=== PATIENT | female | born 1965 | race African-American/Black ===

== ENCOUNTER 2017-01-25 11:31 | Inpatient (IN) | payer BC ==
[~2017-01-25] VITALS: Ht 149.9 cm; Wt 65.0 kg
[~2017-01-25 11:31] MED LIST: ASPI325T PO; GABA300C5 PO; GLIM4TAB PO; LIPI10TA PO; LOSA50TA2 PO; METF500T PO; OMEP20TA PO
[2017-01-25 11:34] VITALS: BP 237/112; PULSE 101; RESP 15; TEMP 98.2; O2SAT 99
--- NOTE | 2017-01-25 11:41 | PD ---
Physical Exam Time Seen by Provider: 11:39 Narrative 51 y/o female here with intermittent numbness/tingling in L arm/leg, heaviness sensation in L leg, for 5 days. More consistent today which prompted evaluation. +Nausea, dizziness. Vital signs reviewed. Hypertensive. Seen at triage desk. She is being immediately bedded. Data Data Last Documented VS Vital Signs Date Time Temp Pulse Resp B/P Pulse Ox O2 Delivery O2 Flow Rate FiO2 01/25/17 11:34 98.2 101 15 237/112 99 MDM Medical Record Reviewed: Yes Supervised Visit with MERON: Alessio Sanchez Jan 25, 2017 11:41
[2017-01-25 11:50] VITALS: BP 192/112; PULSE 102; RESP 18; O2SAT 100
[2017-01-25] MEDS ORDERED: SODIUM CHLORIDE 0.9% FLUSH 10 ML FLUSH IVF PRN (12:00)
[2017-01-25 12:12] LABS: AUTOMATED NEUTROPHIL # 4.6 TH/MM3 (1.8-7.7); BASOPHIL # 0.1 TH/MM3 (0-0.2); BASOPHIL % 1.1 % (0.0-2.0); EOSINOPHIL # 0.1 TH/MM3 (0-0.4); EOSINOPHIL % 1.4 % (0.0-4.0); HEMATOCRIT 35.1 % (35.0-46.0); HEMO FLAGS DIFF FINAL; LYMPH % 38.4 % (9.0-44.0); LYMPHOCYTE # 3.3 TH/MM3 (1.0-4.8); MEAN CELL VOLUME 85.2 FL (80.0-100.0); MEAN CORPUSCULAR HEMOGLOBIN 28.5 PG (27.0-34.0); MEAN CORPUSCULAR HGB CONC 33.5 % (32.0-36.0); MONO % 5.7 % (0.0-8.0); NEUT % 53.4 % (16.0-70.0); PLATELET COUNT 341 TH/MM3 (150-450); RED BLOOD COUNT 4.12 MIL/MM3 (4.00-5.30); RED CELL DISTRIBUTION WIDTH 12.7 % (11.6-17.2); WHITE BLOOD COUNT 8.7 TH/MM3 (4.0-11.0)
--- NOTE | 2017-01-25 12:36 | RADRPT ---
EXAM DATE/TIME: 01/25/2017 12:20 [facility] COMPARISON: CT BRAIN W/O CONTRAST, August 23, 2016, 16:54. INDICATIONS : Left sided weakness and numbness x5 days. RADIATION DOSE: 56.77 CTDIvol (mGy) MEDICAL HISTORY : Cardiovascular disease. Hypertension. Diabetes mellitus type 2.CVA. TIA. SURGICAL HISTORY : Cholecystectomy. ENCOUNTER: Initial ACUITY: 4 - 6 days PAIN SCALE: 0/10 LOCATION: cranial TECHNIQUE: Multiple contiguous axial images were obtained of the head. Using automated exposure control and adj ustment of the mA and/or kV according to patient size, radiation dose was kept as low as reasonably a chievable to obtain optimal diagnostic quality images. FINDINGS: CEREBRUM: The ventricles are normal for age. No evidence of midline shift, mass lesion, hemorrhage or acute in farction. No extra-axial fluid collections are seen. POSTERIOR FOSSA: The cerebellum and brainstem are intact. The 4th ventricle is midline. The cerebellopontine angle i s unremarkable. EXTRACRANIAL: The visualized portion of the orbits is intact. SKULL: The calvaria is intact. No evidence of skull fracture. CONCLUSION: No acute disease. Silvestre Pretty MD FACR on January 25, 2017 at 12:32 Board Certified Radiologist. This report was verified electronically.
[2017-01-25 12:40] LABS: ANION GAP 11 MEQ/L (5-15); BICARBONATE 20.8 MEQ/L (21.0-32.0); BLOOD UREA NITROGEN 23 MG/DL (7-18); CHLORIDE 99 MEQ/L (98-107); GLOMERULAR FILTRATION RATE 37 ML/MIN (>89); POTASSIUM 4.5 MEQ/L (3.5-5.1); SODIUM (NA) 131 MEQ/L (136-145)
--- NOTE | 2017-01-25 12:44 | PD ---
HPI Chief Complaint: Neuro Symptoms/ Deficits Time Seen by Provider: 11:44 Travel History International Travel<30 days: No Contact w/Intl Traveler<30days: No Traveled to known affect area: No History of Present Illness HPI 51-year-old female arrives to the ER due to left upper extremity paresthesias and weakness for 5 days. She reports some vague sensation of dizziness and nausea which comes and goes and seems to proceed episodes of marked numbness and tingling. She reports dropping some complaints of the left hand today. She reports a history of stroke in July, 6 months ago, and believes his symptoms today are similar. She's had no vomiting fever chest pain shortness of breath or headache. She's had no new meds or change in medications. She denies drug alcohol abuse. She follows with Dr. Thomas of neurology. She reports taking aspirin daily. PFSH Past Medical History Cardiovascular Problems: Yes High Cholesterol: Yes Cerebrovascular Accident: Yes Diabetes: Yes Patient Takes Glucophage: Yes Endocrine: Yes Hypertension: Yes Musculoskeletal: No Neurologic: No Psychiatric: No Respiratory: Yes (STATES RECENTLY TREATED FOR PLEURISY AND JUST FINISHED STEROIDS) ?: Not : 3 Para: 3 Past Surgical History Cholecystectomy: Yes Other Surgery: Yes (GALLBLADDER REMOVED) Social History Alcohol Use: No Tobacco Use: No Substance Use: No Allergies-Medications (Allergen,Severity, Reaction): Coded Allergies: Tylenol #3 (Verified Allergy, Severe, RASH, 08/23/16) Zyrtec (Verified Allergy, Severe, RASH, 08/23/16) Septra (Verified Allergy, Mild, HIVES, 08/23/16) Reported Meds & Prescriptions Reported Meds & Active Scripts Active Aspirin 325 Mg Tab 325 Mg PO DAILY Reported Metformin (Metformin HCl) 1,000 Mg Tab 1,000 Mg PO BIDPC With meals Atorvastatin (Atorvastatin Calcium) 10 Mg Tab 10 Mg PO HS Gabapentin 800 Mg Tab 800 Mg PO TID Omeprazole 20 Mg Tab 20 Mg PO DAILY Losartan-Hydrochlorothiazide 50-12.5 Mg Tab 1 Tab PO DAILY Glimepiride 4 Mg Tab 4 Mg PO DAILY Take with breakfast or first main meal Review of Systems Except as stated in HPI: all other systems reviewed are Neg General / Constitutional: No: Fever Neurologic: Positive: Weakness, Dizziness, Paresthesia, Sensory Disturbance Physical Exam Narrative GENERAL: 51-year-old female well-nourished well-developed SKIN: Focused skin assessment warm/dry. HEAD: Atraumatic. Normocephalic. EYES: Pupils equal and round. No scleral icterus. No injection or drainage. ENT: No nasal bleeding or discharge. Mucous membranes pink and moist. NECK: Trachea midline. No JVD. CARDIOVASCULAR: Regular rate and tachycardia. Regular rhythm. RESPIRATORY: No accessory muscle use. Clear to auscultation. Breath sounds equal bilaterally. GASTROINTESTINAL: Abdomen soft, non-tender, nondistended. Hepatic and splenic margins not palpable. MUSCULOSKELETAL: No obvious deformities. No clubbing. No cyanosis. No edema. NEUROLOGICAL: Speech memory and mentation normal. The left leg is weak with hip flexion ankle flexion and extension. Weakness is also observed in the left hand block operator compared to the right. PSYCHIATRIC: Appropriate mood and affect; insight and judgment normal. Data Data Last Documented VS Vital Signs Date Time Temp Pulse Resp B/P Pulse Ox O2 Delivery O2 Flow Rate FiO2 01/25/17 11:50 102 18 100 Room Air 01/25/17 11:50 192/112 01/25/17 11:34 98.2 Vital signs reviewed Orders Electrocardiogram (01/25/17 ) Electrocardiogram (01/25/17 11:54) Complete Blood Count With Diff (01/25/17 11:54) Basic Metabolic Panel (Bmp) (01/25/17 11:54) Drug Screen, Random Urine (01/25/17 11:54) Troponin I (01/25/17 11:54) Urinalysis - C+S If Indicated (01/25/17 11:54) Ct Brain W/O Iv Contrast(Rout) (01/25/17 11:54) Ecg Monitoring (01/25/17 11:54) Iv Access Insert/Monitor (01/25/17 11:54) Oximetry (01/25/17 11:54) Blood Glucose (01/25/17 11:54) Sodium Chloride 0.9% Flush (Ns Flush) (01/25/17 12:00) Mri Brain W/O Contrast (01/25/17 12:01) Sodium Chlor 0.9% 1000 Ml Inj (Ns 1000 M (01/25/17 13:00) Insulin Human Regular Inj (Novolin R Inj (01/25/17 13:00) Admit Order (Ed Use Only) (01/25/17 13:40) Labs Laboratory Tests Test 01/25/17 01/25/17 12:00 13:30 White Blood Count 8.7 TH/MM3 Red Blood Count 4.12 MIL/MM3 Hemoglobin 11.8 GM/DL Hematocrit 35.1 % Mean Corpuscular Volume 85.2 FL Mean Corpuscular Hemoglobin 28.5 PG Mean Corpuscular Hemoglobin 33.5 % Concent Red Cell Distribution Width 12.7 % Platelet Count 341 TH/MM3 Mean Platelet Volume 8.3 FL Neutrophils (%) (Auto) 53.4 % Lymphocytes (%) (Auto) 38.4 % Monocytes (%) (Auto) 5.7 % Eosinophils (%) (Auto) 1.4 % Basophils (%) (Auto) 1.1 % Neutrophils # (Auto) 4.6 TH/MM3 Lymphocytes # (Auto) 3.3 TH/MM3 Monocytes # (Auto) 0.5 TH/MM3 Eosinophils # (Auto) 0.1 TH/MM3 Basophils # (Auto) 0.1 TH/MM3 CBC Comment DIFF FINAL Differential Comment Sodium Level 131 MEQ/L Potassium Level 4.5 MEQ/L Chloride Level 99 MEQ/L Carbon Dioxide Level 20.8 MEQ/L Anion Gap 11 MEQ/L Blood Urea Nitrogen 23 MG/DL Creatinine 1.74 MG/DL Estimat Glomerular Filtration 37 ML/MIN Rate Random Glucose 407 MG/DL Calcium Level 9.2 MG/DL Troponin I LESS THAN 0.02 NG/ML Urine Opiates Screen NEG Urine Barbiturates Screen NEG Urine Amphetamines Screen NEG Urine Benzodiazepines Screen NEG Urine Cocaine Screen NEG Urine Cannabinoids Screen NEG MDM Medical Decision Making Medical Screen Exam Complete: Yes Emergency Medical Condition: Yes Medical Record Reviewed: Yes Differential Diagnosis Hemorrhagic CVA, ischemic CVA, electrolyte imbalance, new medication, renal failure Narrative Course CBC & BMP Diagram 01/25/17 12:00 AG 11 Urine toxicology is hernández-negative Last 24 hours Impressions Brain MRI 01/25/17 1201 Signed Impressions: Service Date/Time: Wednesday, January 25, 2017 12:32 - CONCLUSION: No acute intracranial findings. Americo Kraft MD Head CT 01/25/17 1154 Signed Impressions: Service Date/Time: Wednesday, January 25, 2017 12:20 - CONCLUSION: No acute disease. Silvestre Pretty MD FACR Pt will be admitted for further investigation into LUE/LLE weakness. d/w Dr Machuca. Glucose 407; 1L NS added with 6u insulin. Diagnosis Primary Impression: LUE weakness Additional Impressions: Weakness of left lower extremity Hyperglycemia Admitting Information Admitting Physician Requests: Observation Herminio Ramirez MD Jan 25, 2017 12:44
[2017-01-25] MEDS ORDERED: INSULIN HUMAN REGULAR 1,000 UNITS/10 ML VIAL IV PUSH ONE (13:00)
[2017-01-25] MEDS ORDERED: SODIUM CHLOR 0.9% 1000 ML INJ 1,000 ML IV ONE (13:00)
--- NOTE | 2017-01-25 13:13 | RADRPT ---
EXAM DATE/TIME: 01/25/2017 12:32 [facility] COMPARISON: MRI BRAIN W/O CONTRAST, August 23, 2016, 18:57. INDICATIONS : CVA. Left sided weakness. MEDICAL HISTORY : Hypertension. Diabetes mellitus type 2. TIA. SURGICAL HISTORY : Cholecystectomy. Tubal ligation. ENCOUNTER: Initial ACUITY: 1 day PAIN SCORE: 0/10 LOCATION: Head. TECHNIQUE: Multiplanar, multisequence MRI of the brain was performed without contrast. FINDINGS: CEREBRUM: The ventricles are normal for age. No evidence of midline shift, mass lesion, hemorrhage or acute in farction. No extraaxial fluid collections are seen. The pituitary gland and suprasellar cistern are normal in configuration. WHITE MATTER: No significant signal abnormalities are seen in the white matter. POSTERIOR FOSSA: The cerebellum and brainstem are intact. The 4th ventricle is midline. The cerebellopontine angle is unremarkable. The cerebellar tonsils are normal in position. DIFFUSION IMAGING: No focal areas of restricted diffusion are seen. No evidence of acute infarction. EXTRACRANIAL: The visualized portions of the orbits and paranasal sinuses are unremarkable. CONCLUSION: No acute intracranial findings. Americo Kraft MD on January 25, 2017 at 13:08 Board Certified Radiologist. This report was verified electronically.
[2017-01-25 13:50] LABS: AMPHETAMINE, URINE NEG (NEG); BARBITURATES, URINE NEG (NEG); COCAINE, URINE NEG (NEG)
[2017-01-25] MEDS: SODIUM CHLOR 0.9% 1000 ML INJ 1,000 ML IV SCH (14:00)
[2017-01-25] MEDS ORDERED: ATOR10TA15 PO (14:17)
[2017-01-25] MEDS ORDERED: GABA800T PO (14:17)
[2017-01-25] MEDS ORDERED: METF1000 PO (14:18)
[2017-01-25] MEDS: cloNIDine HCL 0.1 MG TAB PO PRN (15:39)
[2017-01-25 15:40] VITALS: BP 180/83; PULSE 89; RESP 16; O2SAT 98
[2017-01-25] MEDS ORDERED: DEXTROSE 50% IN WATER 50 ML VIAL(D50) IV PRN (16:15)
[2017-01-25] MEDS ORDERED: DOCUSATE SODIUM 50 MG/SENNA 8.6 MG TAB PO PRN (16:15)
[2017-01-25] MEDS ORDERED: CALCIUM CARBONATE 500 MG CHEWABLE TAB CHEW PRN (16:15)
[2017-01-25] MEDS ORDERED: GLUCAGON 1 MG/ML VIAL OTHER PRN (16:15)
[2017-01-25 16:29] VITALS: BP 170/87; TEMP 98.3
--- NOTE | 2017-01-25 16:29 | HHI.HP ---
HPI Service [facility] Primary Care Physician No Primary Care Physician Admission Diagnosis LUE/LLE Weakness Diagnoses: Chief Complaint: Neuro symptoms Travel History International Travel<30 Days: No Contact w/Intl Traveler <30 Da: No Traveled to Known Affected Are: No History of Present Illness This is a 51-year-old female with a history of TIA, hyperlipidemia, diabetes mellitus, hypertension and obesity. She presents to the ER due to intermittent left upper and lower extremity paresthesias and weakness for 5 days worse today becoming more persistent and was recommended by her work supervisor wet room to be evaluated. She also has been dropping things with her left hand. Today she also complained of chills, dizziness and nausea. No fever, headache, speech or swallowing difficulties, chest pain, shortness of breath, abdominal and back pain and diarrhea. She has chronic increased urination and incontinence. She reports a history of stroke 6 months ago and feels her symptoms are similar. EMR review shows she had TIA and had brain MRI, head MRA, carotid ultrasound and echocardiogram. She has been compliant with aspirin. No recent medication changes. BP was also elevated 237/112 and received clonidine. All other systems reviewed negative Review of Systems Except as stated in HPI: all other systems reviewed are Neg Past Family Social History Past Medical History As previously mentioned Past Surgical History Cholecystectomy Reported Medications Aspirin Metformin (Metformin HCl) 1,000 Mg Tab 1,000 Mg PO BIDPC With meals Atorvastatin (Atorvastatin Calcium) 10 Mg Tab 10 Mg PO HS Gabapentin 800 Mg Tab 800 Mg PO TID Omeprazole 20 Mg Tab 20 Mg PO DAILY Losartan-Hydrochlorothiazide 50-12.5 Mg Tab 1 Tab PO DAILY Glimepiride 4 Mg Tab 4 Mg PO DAILY Take with breakfast or first main meal Allergies: Coded Allergies: Tylenol #3 (Verified Allergy, Severe, RASH, 08/23/16) Zyrtec (Verified Allergy, Severe, RASH, 08/23/16) Septra (Verified Allergy, Mild, HIVES, 08/23/16) Family History Coronary artery disease mother Social History Does not smoke or drink. She works in the [employer] section Physical Exam Vital Signs Vital Signs Date Time Temp Pulse Resp B/P Pulse Ox O2 Delivery O2 Flow Rate FiO2 01/25/17 15:40 89 16 180/83 98 01/25/17 11:50 102 18 100 Room Air 01/25/17 11:50 102 18 192/112 100 Room Air 01/25/17 11:34 98.2 101 15 237/112 99 Physical Exam GENERAL: This is a well-nourished, well-developed patient, in no apparent distress. Appears anxious SKIN: No rashes, ecchymoses or lesions. Cool and dry. HEAD: Atraumatic. Normocephalic. No temporal or scalp tenderness. EYES: Pupils equal round and reactive. Extraocular motions intact. No scleral icterus. No injection or drainage. ENT: Nose without bleeding, purulent drainage or septal hematoma. Throat without erythema, tonsillar hypertrophy or exudate. Uvula midline. Airway patent. NECK: Trachea midline. No JVD or lymphadenopathy. Supple, nontender, no meningeal signs. CARDIOVASCULAR: Regular rate and rhythm without murmurs, gallops, or rubs. RESPIRATORY: Clear to auscultation. Breath sounds equal bilaterally. No wheezes , rales, or rhonchi. GASTROINTESTINAL: Abdomen soft, non-tender, nondistended. Left CVA tenderness No guarding. MUSCULOSKELETAL: Extremities without clubbing, cyanosis, or edema. No joint tenderness, effusion, or edema noted. No calf tenderness. Negative Homans sign bilaterally. NEUROLOGICAL: Awake and alert. Cranial nerves II through XII intact. She has decreased sensation in the left upper and left lower extremities as well as decreased strength. She is able to raise left upper and left lower extremities slightly against resistance. She has left upper extremity pronator drift. Normal speech. Laboratory Laboratory Tests Test 01/25/17 01/25/17 12:00 13:30 White Blood Count 8.7 Red Blood Count 4.12 Hemoglobin 11.8 Hematocrit 35.1 Mean Corpuscular Volume 85.2 Mean Corpuscular Hemoglobin 28.5 Mean Corpuscular Hemoglobin 33.5 Concent Red Cell Distribution Width 12.7 Platelet Count 341 Mean Platelet Volume 8.3 Neutrophils (%) (Auto) 53.4 Lymphocytes (%) (Auto) 38.4 Monocytes (%) (Auto) 5.7 Eosinophils (%) (Auto) 1.4 Basophils (%) (Auto) 1.1 Neutrophils # (Auto) 4.6 Lymphocytes # (Auto) 3.3 Monocytes # (Auto) 0.5 Eosinophils # (Auto) 0.1 Basophils # (Auto) 0.1 CBC Comment DIFF FINAL Differential Comment Sodium Level 131 Potassium Level 4.5 Chloride Level 99 Carbon Dioxide Level 20.8 Anion Gap 11 Blood Urea Nitrogen 23 Creatinine 1.74 Estimat Glomerular Filtration 37 Rate Random Glucose 407 Calcium Level 9.2 Troponin I LESS THAN 0.02 Urine Opiates Screen NEG Urine Barbiturates Screen NEG Urine Amphetamines Screen NEG Urine Benzodiazepines Screen NEG Urine Cocaine Screen NEG Urine Cannabinoids Screen NEG Result Diagram: 01/25/17 1200 01/25/17 1200 Imaging EKG tracing interpreted by me with sinus rhythm Last Impressions Brain MRI 01/25/17 1201 Signed Impressions: Service Date/Time: Wednesday, January 25, 2017 12:32 - CONCLUSION: No acute intracranial findings. Americo Kraft MD Head CT 01/25/17 1154 Signed Impressions: Service Date/Time: Wednesday, January 25, 2017 12:20 - CONCLUSION: No acute disease. Silvestre Pretty MD FACR Assessment and Plan Problem List: (1) LUE weakness ICD Code: R29.898 Status: Acute (2) Weakness of left lower extremity ICD Code: R29.898 Status: Acute (3) Hyperglycemia ICD Code: R73.9 Status: Acute Assessment and Plan This is a 51-year-old female who presents to the emergency department because of intermittent left upper and lower extremity paresthesias and weakness for 5 days worse today becoming more persistent Left-sided numbness and weakness with a history of TIA. Heads CT and brain MRI without acute findings. She had complete neurologic workup 6 months ago. Obtain cervical spine MRI and repeat echocardiogram. Monitor on telemetry. Continue aspirin and consult neurology Hyperglycemia with history of diabetes mellitus. She received 6 units regular insulin in the emergency department. Diabetic education. Monitor fingersticks with sliding scale coverage and restart glimepiride. Hold metformin secondary to acute kidney injury. Obtain A1c Acute kidney injury with hyponatremia. Continue IV hydration and avoid nephrotoxins Hold losartan and hydrochlorothiazide. Hypertensive urgency. Start Norvasc and added as needed medications clonidine and hydralazine to keep blood pressure less than 160/90. Urinary complaints with chills and left CVA tenderness suspect pyelonephritis. Obtain UA DVT prophylaxis with SCD and early ambulation Discussed Condition With Patient, family and ER staff Physician Certification 2 Midnight Certification Type: Admission for Inpatient Services Order for Inpatient Services The services are ordered in accordance with Medicare regulations or non- Medicare payer requirements, as applicable. In the case of services not specified as inpatient-only, they are appropriately provided as inpatient services in accordance with the 2-midnight benchmark. Estimated LOS (days): 2 2 days is the estimated time the patient will need to remain in the hospital, assuming treatment plan goals are met and no additional complications. Post-Hospital Plan: Not yet determined Eliazar Adamson MD Jan 25, 2017 16:29
[2017-01-25 16:42] LABS: BACTERIA, URINE MOD /hpf; BLOOD, URINE LARGE (NEG); GLUCOSE,URINE 1000 mg/dL (NEG); HYALINE CAST, URINE 12 /lpf (RARE); KETONE, URINE NEG (NEG); SQUAMOUS EPITHELIAL CELL URINE 1 /hpf (0-5); URINE COLOR LIGHT-YELLOW (YELLW/STRAW)
[2017-01-25 16:44] LABS: COMMENT (UR) CATH-CULTURE IND; CULTURE IF INDICATED CATH CULTURE IND; NITRITE,URINE POS (NEG)
--- NOTE | 2017-01-25 17:39 | RADRPT ---
EXAM DATE/TIME: 01/25/2017 16:52 [facility] COMPARISON: No previous studies available for comparison. INDICATIONS : Extremity weakness. Left side weakness. MEDICAL HISTORY : Hypertension. Diabetes. TIA. SURGICAL HISTORY : Cholecystectomy. Tubal ligation. ENCOUNTER: Subsequent ACUITY: 4-6 days PAIN SCORE: 3/10 LOCATION: neck TECHNIQUE: Multiplanar, multisequence MRI examination of the cervical spine was performed. FINDINGS: VERTEBRAE: Normal vertebral body height. Reactive bony changes about the C5-6 intervertebral disc. ALIGNMENT: No evidence of subluxation. CORD: Normal configuration and signal. POST FOSSA: The cerebellar tonsils are normal in position. C2-C3: The thecal sac has a normal configuration. There is no evidence of disc herniation or spinal canal s tenosis. The neural foramina are patent bilaterally. C3-C4: Broad-based disc osteophyte complex right greater than left. Central canal diameter within normal anaya its. Minimal right neuroforaminal narrowing. C4-C5: Broad-based disc osteophyte complex. Central canal diameter within normal limits. Minimal right neura l foraminal narrowing. C5-C6: Broad-based disc osteophyte complex with superimposed left lateral disc protrusion. Effacement of the CSF anteriorly and posteriorly. Mild flattening of the anterior spinal cord contour. No spinal cord signal abnormality. Moderate left neural foraminal narrowing. C6-C7: The thecal sac has a normal configuration. There is no evidence of disc herniation or spinal canal s tenosis. The neural foramina are patent bilaterally. C7-T1: The thecal sac has a normal configuration. There is no evidence of disc herniation or spinal canal s tenosis. The neural foramina are patent bilaterally. CONCLUSION: C5-6 broad-based disc osteophyte complex with superimposed left lateral disc protrusi on resulting in moderate central canal stenosis and mild spinal cord deformity but no spinal cord sig nal abnormality. Moderate left neuroforaminal narrowing. Americo Kraft MD on January 25, 2017 at 17:33 Board Certified Radiologist. This report was verified electronically.
[2017-01-25] MEDS: GABAPENTIN 400 MG CAP PO SCH (17:43)
[2017-01-25] MEDS: ONDANSETRON HCL 4 MG/2 ML VIAL IV PRN (17:43)
[2017-01-25 18:30] VITALS: BP 157/81; PULSE 77; RESP 20; TEMP 96.5; O2SAT 100
[2017-01-25 20:00] VITALS: BP 160/74; PULSE 71; RESP 18; TEMP 96.8; O2SAT 98
[2017-01-25] MEDS: cefTRIAXone INJ 1,000 MG in SODIUM CHLORIDE 0.9% INJ 100 ML IV SCH (21:40)
[2017-01-25] MEDS: ATORVASTATIN 10 MG TAB PO SCH (21:40)
[2017-01-25] MEDS: INSULIN ASPART SUPPLEMENTAL SCALE SQ SCH (22:19)
[2017-01-26] VITALS (8 sets, daily range): BP systolic 116–164; BP diastolic 65–82; PULSE 74–91; RESP 17–20; TEMP 96.5–97.6; O2SAT 98–100
[2017-01-26] MEDS: INSULIN ASPART SUPPLEMENTAL SCALE SQ SCH ×4 (07:09→20:53)
[2017-01-26] MEDS: ASPIRIN 325 MG TAB PO SCH (08:44)
[2017-01-26] MEDS: PANTOPRAZOLE SOD 20 MG DELAYED RELEASE TAB PO SCH (08:44)
[2017-01-26] MEDS: GABAPENTIN 400 MG CAP PO SCH ×3 (08:44→17:40)
[2017-01-26] MEDS: amLODIPine BESYLATE 5 MG TAB PO SCH (08:45)
[2017-01-26] MEDS: GLIMEPIRIDE 4 MG TAB PO SCH (08:45)
[2017-01-26] MEDS: SODIUM CHLOR 0.9% 1000 ML INJ 1,000 ML IV SCH ×2 (08:53→17:44)
[2017-01-26 09:27] LABS: ALKALINE PHOSPHATASE 104 U/L (45-117); ALT (GPT) 22 U/L (10-53); ANION GAP 9 MEQ/L (5-15); AST (GOT) 22 U/L (15-37); BICARBONATE 20.1 MEQ/L (21.0-32.0); BLOOD UREA NITROGEN 14 MG/DL (7-18); CHLORIDE 110 MEQ/L (98-107); GLOMERULAR FILTRATION RATE 75 ML/MIN (>89); HDL CHOLESTEROL 39.8 MG/DL (40.0-60.0); LDL CHOLESTEROL 96 MG/DL (0-99); POTASSIUM 4.4 MEQ/L (3.5-5.1); SODIUM (NA) 139 MEQ/L (136-145); TOTAL BILIRUBIN ADULT 0.1 MG/DL (0.2-1.0)
--- NOTE | 2017-01-26 11:29 | MB ---
cc: WEST RANDLE MD DATE OF CONSULTATION: 01/25/2017 REASON FOR CONSULTATION Next possible stroke. HISTORY OF PRESENT ILLNESS Ms. Burton is a 51-year-old -[place] female with a past medical history of diabetes, hyperlipidemia, hypertension, obesity, and TIA. The patient presented to the [facility] Emergency Room due to left upper and lower extremity numbness and heaviness with mild weakness of five days' duration and slowly progressively worsening. Denies speech difficulty, headache, dizziness, double vision or facial numbness. The patient states that she had a similar episode back in July and she was diagnosed as TIA, however she did not recover completely and she states that these events "come and go". Occasionally she feels weak and drags her left leg. She denies pain however she mentions that recently she has noticed some tingling and radiating pain in the left lower extremity with mild stiffness of the neck, but denies constant deep pain in the neck. She also denies injury. Upon presentation to the emergency room, her blood pressure was elevated to 237/112. REVIEW OF SYSTEMS A 12-point review of systems is negative except for what is stated in the HPI. PAST MEDICAL HISTORY 1. Hyperlipidemia. 2. Diabetes. 3. Obesity. 4. Hypertension. 5. TIA. PAST SURGICAL HISTORY Cholecystectomy. MEDICATIONS 1. Aspirin. 2. Metformin. 3. Atorvastatin. 4. Gabapentin. 5. Omeprazole. 6. Losartan. 7. Hydrochlorothiazide. 8. Glimepiride. ALLERGIES TYLENOL #3, ZYRTEC AND SEPTRA. FAMILY HISTORY Coronary artery disease in her mother. SOCIAL HISTORY Denies smoking or drinking. PHYSICAL EXAMINATION GENERAL: Awake, alert, oriented, surrounded by several family members, not in acute distress, anxious. HEAD, EYES, EARS, NOSE AND THROAT: Atraumatic, normocephalic. Intact hearing and intact vision. NECK: Soft, supple. No signs of meningeal irritation. CARDIOVASCULAR: Regular rate and rhythm. RESPIRATORY: Clear to auscultation. No wheezes GASTROINTESTINAL: Soft, nontender. MUSCULOSKELETAL: Without clubbing, edema or cyanosis. Moves all four extremities. NEUROLOGIC: Awake, alert, oriented to time, person and place. Cranial nerve examination is grossly intact. No facial asymmetry. Intact external ocular motility. Pupils are equally reacting to light and accommodation. No speech difficulty. No dysarthria. No dysphagia. Intact speech content. Motor examination bilateral 5/5. No abnormal movement. Normal tone. Left upper extremity grade 5- left shoulder abduction and wrist and elbow extension. Normal wrist extension. Mild weakness 5-/5 finger flexion. Left lower extremity, hip flexion 5-/5. Foot plantar flexion 5-/5, otherwise 5/5. Normal tone. No abnormal movements. Sensation is diminished left forearm. Reflexes 2+ bilateral and symmetrical. Negative Kolb sign. Negative crossed abductor reflex. Sluggish bilateral ankle reflexes. Plantars bilateral downgoing. Gait is intact. Stance is intact. Toe walking and heel walking are intact. PSYCHOLOGICAL: Normal mood and behavior. LABORATORY DATA White blood cells 8.7, hemoglobin 11.8, MCV 85.2, platelet count 341. Sodium 131, potassium 4.5, anion gap 11, BUN 23, creatinine 1.74, calcium 9.2. UDS negative. IMAGING -Brain MRI without contrast contained no acute intracranial finding. -Head CT scan without contrast with no acute disease. -Cervical spine MRI without contrast revealed C5-6 broad-based disc osteophyte complex with superimposed left lateral disc protrusion resulting in moderate central canal stenosis and mild spinal cord deformity, but no spinal cord signal abnormality. Moderate left neuroforaminal narrowing. DIAGNOSTIC IMPRESSION History of diabetes mellitus History of TIA -History of hypertension, - Left-sided upper and lower extremity weakness slowly progressive, sparing of the face. Possible etiology is degenerative cervical spinal disease/myelopathy. PLAN 1. Neuro checks q.4 hourly. 2. Continue home dose medications. 3. Consult Neurosurgery, recommendations are appreciated. 4. Fall precautions. 5. DVT prophylaxis. 6. GI prophylaxis. Thank you for the opportunity to participate in the care of your patient. MD AAMIR Phipps/JULIETTE /11:04 PM /10:17 AM JOSHUA
--- NOTE | 2017-01-26 12:05 | HHI.PR ---
Subjective Remarks some tingling numbness of left upper extremities states strength stronger Objective Vitals Vital Signs Date Time Temp Pulse Resp B/P Pulse Ox O2 Delivery O2 Flow Rate FiO2 01/26/17 08:00 97.1 75 17 144/70 98 01/26/17 06:59 91 01/26/17 06:36 97.3 82 20 130/69 99 01/26/17 00:00 97.6 77 20 129/66 99 01/25/17 20:00 96.8 71 18 160/74 98 01/25/17 18:30 96.5 77 20 157/81 100 01/25/17 16:29 98.3 89 16 170/87 97 01/25/17 15:40 89 16 180/83 98 I/O 01/25/17 01/25/17 01/25/17 01/26/17 01/26/17 01/26/17 07:00 15:00 23:00 07:00 15:00 23:00 Intake Total 240 ml Balance 240 ml Intake Oral 240 ml # Voids 1 1 # Bowel Movements 0 1 Result Diagram: 01/25/17 1200 01/26/17 0736 Imaging Last Impressions Brain MRI 01/25/17 1201 Signed Impressions: Service Date/Time: Wednesday, January 25, 2017 12:32 - CONCLUSION: No acute intracranial findings. Americo Kraft MD Head CT 01/25/17 1154 Signed Impressions: Service Date/Time: Wednesday, January 25, 2017 12:20 - CONCLUSION: No acute disease. Silvestre Pretty MD FACR Cervical Spine MRI 01/25/17 0000 Signed Impressions: Service Date/Time: Wednesday, January 25, 2017 16:52 - CONCLUSION: C5-6 broad-based disc osteophyte complex with superimposed left lateral disc protrusion resulting in moderate central canal stenosis and mild spinal cord deformity but no spinal cord signal abnormality. Moderate left neuroforaminal narrowing. Americo Kraft MD Objective Remarks awake and alert, NAD anicteric no nuchal rigidity lungs clear regular rhythm abdomen soft, nontender extremities no edema neuro : CN intact grossly no sensory deficits LUE- very very mild left sided weakness gait steady A/P Problem List: (1) LUE weakness ICD Code: R29.898 Status: Acute (2) Weakness of left lower extremity ICD Code: R29.898 Status: Acute (3) Hyperglycemia ICD Code: R73.9 Status: Acute Assessment and Plan This is a 51-year-old right handed female who presents to the emergency department because of intermittent left upper and lower extremity paresthesias and weakness for 5 days worse today becoming more persistent Cervical Myelopathy- symptoms Left-sided tingling numbness more of LUE Heads CT and brain MRI without acute findings. She had complete neurologic workup 6 months ago. -neurology ff. Neurosurgery consulted DM type, elevated readings. . a1C pending. Diabetic education. Monitor fingersticks with sliding scale coverage and restarted glimepiride. DC metformin secondary to acute kidney injury. may need insulin for better control Acute kidney injury with hyponatremia. Resolved. Continue IV hydration and avoid nephrotoxins Hold losartan and hydrochlorothiazide. Hypertensive urgency. Improved Bp readings. started on Norvasc and added as needed medications clonidine and hydralazine to keep blood pressure less than 160/90. UTI- on Ceftriaxone ff C and S DVT prophylaxis with SCD and early ambulation Mike Machuca MD Jan 26, 2017 12:05 Mike Machuca MD Jan 26, 2017 12:05 Mike Machuca MD Jan 26, 2017 12:05 Mike Machuca MD Jan 26, 2017 12:05
[2017-01-26] MEDS: cloNIDine HCL 0.1 MG TAB PO PRN (12:18)
--- NOTE | 2017-01-26 13:05 | PD.CONS ---
HPI Service Neurosurgery Consult Requested By Reason for Consult Spinal cord compression Primary Care Physician No Primary Care Physician History of Present Illness Ms. Burton is a 51-year-old -Filipino female with history of diabetes, hyperlipidemia, hypertension, obesity, and TIA. She presented to the [facility] Emergency Room due to left upper and lower extremity numbness with mild weakness for five days, and slowly progressively worsening. She denies speech difficulty, headache, dizziness, double vision or facial numbness. The patient states that she had a similar episode back in July and she was diagnosed as TIA, however she did not recover completely and she states that these events "come and go". Occasionally she feels weak and drags her left leg. She denies severe pain. She reports that she has noticed some tingling and radiating pain in the left lower extremity with mild stiffness of the neck, but denies deep pain in the neck. She also denies injury or falls. Upon presentation to the emergency room, her blood pressure was very elevated, 237/112. MRI of the cervical spine show severe degenerative changes with spinal cord compression. She was evaluated by a neurologist. A neurosurgical consultation was requested Review of Systems Constitutional: DENIES: Diaphoretic episodes, Fatigue, Fever, Weight gain, Weight loss, Chills, Dizziness, Change in appetite, Night Sweats Endocrine: DENIES: Abnorml menstrual pattern, Heat/cold intolerance, Polydipsia , Polyuria, Polyphagia Eyes: DENIES: Blurred vision, Diplopia, Eye inflammation, Eye pain, Vision loss , Photosensitivity, Double Vision Ears, nose, mouth, throat: DENIES: Tinnitus, Hearing loss, Vertigo, Nasal discharge, Oral lesions, Throat pain, Hoarseness, Ear Pain, Running Nose, Epistaxis, Sinus Pain, Toothache, Odynophagia Respiratory: DENIES: Apneas, Cough, Snoring, Wheezing, Hemoptysis, Sputum production, Shortness of breath Cardiovascular: DENIES: Chest pain, Palpitations, Syncope, Dyspnea on Exertion , PND, Lower Extremity Edema, Orthopnea, Claudication Gastrointestinal: DENIES: Abdominal pain, Black stools, Bloody stools, Constipation, Diarrhea, Nausea, Vomiting, Difficulty Swallowing, Anorexia Genitourinary: DENIES: Abnormal vaginal bleeding, Dysmenorrhea, Dyspareunia, Sexual dysfunction, Urinary frequency, Urinary incontinence, Urgency, Hematuria , Dysuria, Nocturia, Vaginal discharge Musculoskeletal: DENIES: Joint pain, Muscle aches, Stiffness, Joint Swelling, Back pain, Neck pain Integumentary: DENIES: Abnormal pigmentation, Pruritus, Rash, Nail changes, Breast masses, Breast skin changes, Nipple discharge Hematologic/lymphatic: DENIES: Bruising, Lymphadenopathy Immunologic/allergic: DENIES: Eczema, Urticaria Neurologic: COMPLAINS OF: Abnormal gait, Localized weakness, Paresthesias, DENIES: Headache, Seizures, Speech Problems, Tremor, Poor Balance Psychiatric: DENIES: Anxiety, Confusion, Mood changes, Depression, Hallucinations, Agitation, Suicidal Ideation, Homicidal Ideation, Delusions Past Family Social History Allergies: Coded Allergies: Tylenol #3 (Verified Allergy, Severe, RASH, 08/23/16) Zyrtec (Verified Allergy, Severe, RASH, 08/23/16) Septra (Verified Allergy, Mild, HIVES, 08/23/16) Past Medical History 1. Hyperlipidemia. 2. Diabetes. 3. Obesity. 4. Hypertension. 5. TIA. Past Surgical History Cholecystectomy. Reported Medications 1. Aspirin. 2. Metformin. 3. Atorvastatin. 4. Gabapentin. 5. Omeprazole. 6. Losartan. 7. Hydrochlorothiazide. 8. Glimepiride. Active Ordered Medications Current Medications Sodium Chloride 2 ml 2 ml UNSCH PRN IVF FLUSH AFTER USING IV ACCESS; Start 01/25 at 12:00 Sodium Chloride (NS 1000 ml Inj) 1,000 ml @ 999 mls/hr BOLUS ONCE IV Last administered on 01/25/17 13:00; Start 01/25/17 at 13:00; Stop 01/25/17 at 14:00; Status DC Insulin Human Regular 6 units 6 units ONCE ONCE IV PUSH Last administered on 13:00; Start 01/25/17 at 13:00; Stop 01/25/17 at 13:01; Status DC Sodium Chloride (NS 1000 ml Inj) 1,000 ml @ 70 mls/hr [id number] IV Last administered on 01/26/17 08:53; Start 01/25/17 at 14:00 Clonidine (Catapres) 0.1 mg Q6H PRN PO SBP>160, DBP>90 Last administered on 01/26 12:18; Start 01/25/17 at 16:00 Aspirin (Aspirin) 325 mg DAILY PO Last administered on 01/26/17 08:44; Start at 09:00 Atorvastatin Calcium (Lipitor) 10 mg HS PO Last administered on 01/25/17 21:40 ; Start 01/25/17 at 21:00 Gabapentin (Neurontin) 800 mg TID PO Last administered on 01/26/17 12:18; Start 01/25/17 at 18:00 Glimepiride (Amaryl) 4 mg DAILY PO Last administered on 01/26/17 08:45; Start 01/26/17 at 09:00 Pantoprazole Sodium (Protonix) 20 mg DAILY PO Last administered on 01/26/17 08: 44; Start 01/26/17 at 09:00 Dextrose (D50w (Vial) Inj) 50 ml UNSCH PRN IV HYPOGLYCEMIA-SEE COMMENTS; Start 01/25/17 at 16:15 Glucagon (Glucagon Inj) 1 mg UNSCH PRN OTHER HYPOGLYCEMIA-SEE COMMENTS; Start 01/25/17 at 16:15 Insulin Aspart (NovoLOG SUPPLEMENTAL SCALE) 1 ACHS SLIDING SCALE SQ Last administered on 01/26/17 11:48; Start 01/25/17 at 21:00 Amlodipine Besylate (Norvasc) 5 mg DAILY PO Last administered on 01/26/17 08:45 ; Start 01/26/17 at 09:00 Hydralazine HCl (Apresoline Inj) 10 mg Q6H PRN IV blood pressure over 160/90; Start 01/25/17 at 16:15 Ondansetron HCl (Zofran Inj) 4 mg Q6H PRN IV NAUSEA Last administered on 17:43; Start 01/25/17 at 16:15 Senna/Docusate Sodium (Abi-Colace) 1 tab BID PRN PO CONSTIPATION; Start at 16:15 Calcium Carbonate 1000 mg 1,000 mg TID PRN CHEW DYSPEPSIA; Start 01/25/17 at 16: 15 Ceftriaxone Sodium/Sodium Chloride (Rocephin Inj/NS Inj) 100 ml @ 200 mls/hr Q24H IV Last administered on 01/25/17t 21:40; Start 01/25/17 at 20:00 Family History Coronary artery disease in her mother. Social History She denies alcohol abuse She denies tobacco abuse She denies illicit drug use Physical Exam Vital Signs Vital Signs Date Time Temp Pulse Resp B/P Pulse Ox O2 Delivery O2 Flow Rate FiO2 01/26/17 12:00 96.5 85 18 164/82 99 01/26/17 08:00 97.1 75 17 144/70 98 01/26/17 06:59 91 01/26/17 06:36 97.3 82 20 130/69 99 01/26/17 00:00 97.6 77 20 129/66 99 01/25/17 20:00 96.8 71 18 160/74 98 01/25/17 18:30 96.5 77 20 157/81 100 01/25/17 16:29 98.3 89 16 170/87 97 01/25/17 15:40 89 16 180/83 98 Physical Exam The patient is alert, awake and oriented to time, place and person. Speech is fluent. Higher cognitive functions are normal. Cranial nerve examination demonstrates the pupils to be equal, round, and reactive to light. Extra-ocular movements are intact. Facial motor and sensory function are normal and symmetrical. Gross hearing is intact, bilaterally. The uvula is midline and elevates symmetrically with the soft palate. Sternocleidomastoid and trapezius muscles have normal and symmetrical strength. Other cranial nerves are intact. Neck is soft and supple. Cervical spine has a decreased range of motion in anterior flexion, extension, lateral bending, and rotation without pain. There is no tenderness to palpation to the spinous processes or paraspinal muscles. Motor examination right upper extremity strength is 5 out of 5 in all major muscle groups. Left upper extremity 4+ left shoulder abduction and wrist and elbow extension. Normal wrist extension. Mild weakness 4+/5 finger flexion. Right lower extremity 5 out 5 in all major muscle groups. Left lower extremity, hip flexion 5-/5. Foot plantar flexion 5-/5, otherwise 5/5. Normal tone. Sensation is diminished left forearm to light touch and pinprick. Reflexes 2+ bilateral and symmetrical. Negative Kolb sign. Negative crossed abductor reflex. 1+ bilateral ankle reflexes. Plantars bilateral downgoing. Cerebellar examination is intact to [id number] test, rapid rhythmic alternating motion. There is no dysmetria, dysdiadochokinesia, truncal ataxia, or tremor. Laboratory Laboratory Tests Test 01/25/17 01/26/17 13:30 07:36 Urine Color LIGHT-YELLOW Urine Turbidity CLEAR Urine pH 5.0 Urine Specific [place] 1.010 Urine Protein 30 Urine Glucose (UA) 1000 Urine Ketones NEG Urine Occult Blood LARGE Urine Nitrite POS Urine Bilirubin NEG Urine Urobilinogen LESS THAN 2.0 Urine Leukocyte Esterase NEG Urine RBC 14 Urine WBC 3 Urine Squamous Epithelial 1 Cells Urine Bacteria MOD Urine Hyaline Casts 12 Microscopic Urinalysis Comment CATH-CULTURE IND Urine Opiates Screen NEG Urine Barbiturates Screen NEG Urine Amphetamines Screen NEG Urine Benzodiazepines Screen NEG Urine Cocaine Screen NEG Urine Cannabinoids Screen NEG Sodium Level 139 Potassium Level 4.4 Chloride Level 110 Carbon Dioxide Level 20.1 Anion Gap 9 Blood Urea Nitrogen 14 Creatinine 0.95 Estimat Glomerular Filtration 75 Rate Random Glucose 222 Calcium Level 8.0 Total Bilirubin 0.1 Aspartate Amino Transf 22 (AST/SGOT) Alanine Aminotransferase 22 (ALT/SGPT) Alkaline Phosphatase 104 Total Protein 6.2 Albumin 2.5 Triglycerides Level 375 Cholesterol Level 211 LDL Cholesterol 96 HDL Cholesterol 39.8 Cholesterol/HDL Ratio 5.30 Thyroid Stimulating Hormone 0.530 3rd Gen Date/Time Procedure Status Source Growth 01/25/17 13:30 Urine Culture Received Urine Catheterized Urine Pending Result Diagram: 01/25/17 1200 01/26/17 0736 Assessment and Plan Assessment and Plan History of diabetes mellitus, history of TIA, history of hypertension, left-sided upper and lower extremity weakness slowly progressive, staring of the face. Cervical spinal stenosis, possible myelopathy. P Attending Statement Neuro. I have reviewed her clinical and radiological findings.neuro checks in a serial fashion. Recommend TIA workup with an echocardiogram, carotid duplex and possible She has quite significant spinal stenosis at C5-C6 and she may require urgent Decompression Pulmonary. Continue aggressive pulmonary toilette, nasotracheal suction, and breathing treatments with nebulizers. PT and OT evaluation Nutrition. Oral diet Renal. monitor closely urine output, BUN and creatinine Endocrine. Monitor serial Acu checks and SSI as needed in detail ID monitor for signs of infection Protonix for stress ulcer prophylaxis Wilner hose and SCD's for DVT prophylaxis Ady Herrera MD Jan 26, 2017 13:05
--- NOTE | 2017-01-26 14:27 | EC ---
Study Study Date:01/26/2017 STUDY CONCLUSIONS SUMMARY LEFT VENTRICLE: The cavity size was normal. Wall thickness was at the upper limits of normal. Systolic function was vigorous. The estimated ejection fraction was in the range of 65% to 70%. Wall motion was normal; there were no regional wall motion abnormalities. Doppler parameters are consistent with abnormal left ventricular relaxation (grade 1 diastolic dysfunction). If LV function is below 40, please consider prescribing an ACEI or ARB or document rationale for non-use. PROCEDURE DATA STUDY STATUS: Elective. Procedure: Transthoracic echocardiography. Image quality was good. Scanning was performed from the parasternal, apical, and subcostal acoustic windows. Study completion: The patient tolerated the procedure well. Transthoracic echocardiography. M-mode, complete 2D, complete spectral Doppler, and color Doppler. Patient status: Inpatient. CARDIAC ANATOMY LEFT VENTRICLE: The cavity size was normal. Wall thickness was at the upper limits of normal. Systolic function was vigorous. The estimated ejection fraction was in the range of 65% to 70%. Wall motion was normal; there were no regional wall motion abnormalities. Doppler parameters are consistent with abnormal left ventricular relaxation (grade 1 diastolic dysfunction). AORTIC VALVE: Trileaflet; normal thickness leaflets. Doppler: Transvalvular velocity was within the normal range. There was no stenosis. No regurgitation. AORTA: Aortic root: The aortic root was normal in size. MITRAL VALVE: Structurally normal valve. Doppler: Transvalvular velocity was within the normal range. There was no evidence for stenosis. Trace regurgitation. LEFT ATRIUM: The atrium was normal in size. RIGHT VENTRICLE: The cavity size was normal. Wall thickness was normal. PULMONIC VALVE: Doppler: Transvalvular velocity was within the normal range. There was no evidence for stenosis. No regurgitation. TRICUSPID VALVE: Structurally normal valve. Doppler: Transvalvular velocity was within the normal range. Trace regurgitation. PULMONARY ARTERY: The main pulmonary artery was normal-sized. Systolic pressure was within the normal range. RIGHT ATRIUM: The atrium was normal in size. PERICARDIUM: There was no pericardial effusion. SYSTEMIC VEINS: Inferior vena cava: The vessel was normal in size. BASIC MEASUREMENTS ADULT NORMAL Left ventricle LV internal dimension, ED, chordal level, *38 mm 43-52 PLAX LV internal dimension, ES, chordal level, 26.2 mm 23-38 PLAX Fractional shortening, chordal level, PLAX 31 % >29 LV posterior wall thickness, ED 10.8 mm IVS/LVPW ratio, ED 1.04 <1.3 Ventricular septum Septal thickness, ED 11.2 mm Aortic valve Leaflet separation 20 mm 15-26 Right ventricle RV internal dimension, ED, PLAX 26.3 mm 19-38 BASIC MEASUREMENTS ADULT NORMAL Aortic valve Leaflet separation 20 mm 15-26 Aorta Root diameter, ED 26 mm 20-37 Left atrium Anterior-posterior dimension, ES 32 mm 19-40 LA/aortic root ratio 1.23 DOPPLER MEASUREMENTS ADULT NORMAL Mitral valve Peak E-wave velocity 64.7 cm/s Peak A-wave velocity 78 cm/s Peak E/A ratio 0.8 LEGEND: Mean values are shown as u=mean value. Asterisk (*) mcgraw values outside specified normal range. Prepared and signed by Mao Villagran [id number]
--- NOTE | 2017-01-26 14:49 | EKG ---
Date Performed: 01/25/2017 Time Performed: 11:58:31 PTAGE: 51 years EKG: Sinus rhythm NORMAL ECG Since PREVIOUS TRACING 08/23/2016, no significant change. PREVIOUS TRACIN08/23/2016 16.31 DOCTOR: Mehdi Ayon Interpretating Date/Time 01/26/2017 14:48:06
[2017-01-26] MEDS: traMADol HCL 50 MG TAB PO PRN (17:40)
[2017-01-26] MEDS: cefTRIAXone INJ 1,000 MG in SODIUM CHLORIDE 0.9% INJ 100 ML IV SCH (20:51)
[2017-01-26] MEDS: ATORVASTATIN 10 MG TAB PO SCH (20:51)
[2017-01-26] MEDS: ONDANSETRON HCL 4 MG/2 ML VIAL IV PRN (22:41)
[2017-01-27] VITALS (9 sets, daily range): BP systolic 122–163; BP diastolic 64–80; PULSE 73–89; RESP 18–19; TEMP 96.5–98.1; O2SAT 98–100
--- NOTE | 2017-01-27 00:15 | HHI.PR ---
Review/Management Diagnosis - History of diabetes mellitus - History of TIA -History of hypertension, - Left-sided upper and lower extremity weakness slowly progressive, sparing of the face. Likely etiology is degenerative cervical spinal disease/ cervical myelopathy. Plan 1. Neuro checks q.4 hourly. 2. Continue home dose medications. 3. Fall precautions. 4. DVT prophylaxis. 5. GI prophylaxis 6. Continue with neurosurgical intervention Diagnosis/Plan: Subjective Subjective Comments No acute events reported Complains of lightheadedness due to BP fluctuations working with PT Neurosurgery recommend surgical intervention, decompressive surgery Active Medications Current Medications Medications (Trade) Dose Ordered Sig/Akanksha Route Start Time Stop Time Status Last Admin Sodium Chloride 2 ml 2 ml UNSCH PRN IVF 01/25/17 12:00 (NS 1000 ml Inj) 1,000 ml @ 70 mls/hr [id number] IV 01/25/17 14:00 01/26/17 08:53 (Catapres) 0.1 mg Q6H PRN PO 01/25/17 16:00 01/26/17 12:18 (Aspirin) 325 mg DAILY PO 01/26/17 09:00 01/26/17 08:44 (Lipitor) 10 mg HS PO 01/25/17 21:00 01/26/17 20:51 (Neurontin) 800 mg TID PO 01/25/17 18:00 01/26/17 17:40 (Amaryl) 4 mg DAILY PO 01/26/17 09:00 01/26/17 08:45 (Protonix) 20 mg DAILY PO 01/26/17 09:00 01/26/17 08:44 (D50w (Vial) Inj) 50 ml UNSCH PRN IV 01/25/17 16:15 (Glucagon Inj) 1 mg UNSCH PRN OTHER 01/25/17 16:15 (Norvasc) 5 mg DAILY PO 01/26/17 09:00 01/26/17 08:45 (Apresoline Inj) 10 mg Q6H PRN IV 01/25/17 16:15 (Zofran Inj) 4 mg Q6H PRN IV 01/25/17 16:15 01/26/17 22:41 (Abi-Colace) 1 tab BID PRN PO 01/25/17 16:15 Calcium Carbonate 1000 mg 1,000 mg TID PRN CHEW 01/25/17 16:15 (Rocephin Inj/NS Inj) 100 ml @ 200 mls/hr Q24H IV 01/25/17 20:00 01/26/17 20:51 (Ultram) 50 mg Q6H PRN PO 01/26/17 16:45 01/26/17 17:40 Allergies Allergies Coded Allergies Tylenol #3 (Verified Allergy, Severe, RASH, 08/23/16) Zyrtec (Verified Allergy, Severe, RASH, 08/23/16) Septra (Verified Allergy, Mild, HIVES, 08/23/16) Exam I&O / VS 01/26/17 01/26/17 01/27/17 15:00 23:00 07:00 Intake Total 360 ml 360 ml Balance 360 ml 360 ml Intake Oral 360 ml 360 ml # Voids 2 2 # Bowel Movements 1 1 Vital Signs Date Time Temp Pulse Resp B/P Pulse Ox O2 Delivery O2 Flow Rate FiO2 01/26/17 20:40 74 01/26/17 20:00 97.3 75 18 155/76 100 01/26/17 16:00 97.1 85 18 116/65 100 01/26/17 12:00 96.5 85 18 164/82 99 01/26/17 08:00 97.1 75 17 144/70 98 01/26/17 06:59 91 01/26/17 06:36 97.3 82 20 130/69 99 Exam Comments GENERAL: Awake, alert, oriented, surrounded by several family members, not in acute distress, anxious. HEAD, EYES, EARS, NOSE AND THROAT: Atraumatic, normocephalic. Intact hearing and intact vision. NECK: Soft, supple. No signs of meningeal irritation. CARDIOVASCULAR: Regular rate and rhythm. RESPIRATORY: Clear to auscultation. No wheezes GASTROINTESTINAL: Soft, nontender. MUSCULOSKELETAL: Without clubbing, edema or cyanosis. Moves all four extremities. NEUROLOGIC: Awake, alert, oriented to time, person and place. Cranial nerve examination is grossly intact. No facial asymmetry. Intact external ocular motility. Pupils are equally reacting to light and accommodation. No speech difficulty. No dysarthria. No dysphagia. Intact speech content. Motor examination bilateral 5/5. No abnormal movement. Normal tone. Left upper extremity grade 5- left shoulder abduction and wrist and elbow extension. Normal wrist extension. Mild weakness 5-/5 finger flexion. Left lower extremity, hip flexion 5-/5. Foot plantar flexion 5-/5, otherwise 5/5. Normal tone. No abnormal movements. Sensation is diminished left forearm. Reflexes 2+ bilateral and symmetrical. Negative Kolb sign. Negative crossed abductor reflex. Sluggish bilateral ankle reflexes. Plantars bilateral downgoing. Gait is intact. Stance is intact. Toe walking and heel walking are intact. PSYCHOLOGICAL: Normal mood and behavior Objective Radiology Results Last 72 hours Impressions Brain MRI 01/25/17 1201 Signed Impressions: Service Date/Time: Wednesday, January 25, 2017 12:32 - CONCLUSION: No acute intracranial findings. Americo Kraft MD Head CT 01/25/17 1154 Signed Impressions: Service Date/Time: Wednesday, January 25, 2017 12:20 - CONCLUSION: No acute disease. Silvestre Pretty MD FACR Cervical Spine MRI 01/25/17 0000 Signed Impressions: Service Date/Time: Wednesday, January 25, 2017 16:52 - CONCLUSION: C5-6 broad-based disc osteophyte complex with superimposed left lateral disc protrusion resulting in moderate central canal stenosis and mild spinal cord deformity but no spinal cord signal abnormality. Moderate left neuroforaminal narrowing. Americo Kraft MD Micro and Labs Laboratory Tests Test 01/26/17 07:36 Sodium Level 139 Potassium Level 4.4 Chloride Level 110 Carbon Dioxide Level 20.1 Anion Gap 9 Blood Urea Nitrogen 14 Creatinine 0.95 Estimat Glomerular Filtration 75 Rate Random Glucose 222 Calcium Level 8.0 Total Bilirubin 0.1 Aspartate Amino Transf 22 (AST/SGOT) Alanine Aminotransferase 22 (ALT/SGPT) Alkaline Phosphatase 104 Total Protein 6.2 Albumin 2.5 Triglycerides Level 375 Cholesterol Level 211 LDL Cholesterol 96 HDL Cholesterol 39.8 Cholesterol/HDL Ratio 5.30 Thyroid Stimulating Hormone 0.530 3rd Gen Date/Time Procedure Status Source Growth 01/25/17 13:30 Urine Culture - Preliminary Resulted Urine Catheterized Urine Gram Negative Chel Alfonso MD Jan 27, 2017 00:15
[2017-01-27] MEDS: traMADol HCL 50 MG TAB PO PRN ×3 (06:37→23:48)
[2017-01-27] MEDS: cloNIDine HCL 0.1 MG TAB PO PRN (06:39)
[2017-01-27] MEDS: ONDANSETRON HCL 4 MG/2 ML VIAL IV PRN ×3 (06:40→20:48)
[2017-01-27] MEDS: INSULIN ASPART SUPPLEMENTAL SCALE SQ SCH ×4 (06:44→20:47)
[2017-01-27] MEDS: SODIUM CHLOR 0.9% 1000 ML INJ 1,000 ML IV SCH ×3 (08:34→23:50)
[2017-01-27] MEDS: amLODIPine BESYLATE 5 MG TAB PO SCH (08:35)
[2017-01-27] MEDS: GABAPENTIN 400 MG CAP PO SCH ×3 (08:35→17:19)
[2017-01-27] MEDS: PANTOPRAZOLE SOD 20 MG DELAYED RELEASE TAB PO SCH (08:36)
[2017-01-27] MEDS: ASPIRIN 325 MG TAB PO SCH (08:36)
[2017-01-27] MEDS: GLIMEPIRIDE 4 MG TAB PO SCH (08:36)
[2017-01-27 09:43] LABS: HEMOGLOBIN A1a 1.2 %; HEMOGLOBIN Ao 76.3 %; HEMOGLOBIN LA1C 2.8 %
--- NOTE | 2017-01-27 11:30 | HHI.PR ---
Subjective Remarks patient awake and alert, complains of dizziness/lightheaded no nausea or vomiting up and ambulated gradually - slow but steady unassisted Objective Vitals Vital Signs Date Time Temp Pulse Resp B/P Pulse Ox O2 Delivery O2 Flow Rate FiO2 01/27/17 10:30 73 01/27/17 08:00 98.1 78 18 142/71 98 01/27/17 04:00 96.5 80 18 163/79 100 01/27/17 00:00 97.3 80 18 122/65 99 01/26/17 20:40 74 01/26/17 20:00 97.3 75 18 155/76 100 01/26/17 16:00 97.1 85 18 116/65 100 01/26/17 12:00 96.5 85 18 164/82 99 I/O 01/26/17 01/26/17 01/26/17 01/27/17 01/27/17 01/27/17 07:00 15:00 23:00 07:00 15:00 23:00 Intake Total 360 ml 360 ml 840 ml Balance 360 ml 360 ml 840 ml Intake Oral 360 ml 360 ml IV Total 840 ml # Voids 1 2 2 1 # Bowel Movements 1 1 1 Result Diagram: 01/25/17 1200 01/26/17 0736 Imaging Last Impressions Brain MRI 01/25/17 1201 Signed Impressions: Service Date/Time: Wednesday, January 25, 2017 12:32 - CONCLUSION: No acute intracranial findings. Americo Kraft MD Head CT 01/25/17 1154 Signed Impressions: Service Date/Time: Wednesday, January 25, 2017 12:20 - CONCLUSION: No acute disease. Silvestre Pretty MD FACR Cervical Spine MRI 01/25/17 0000 Signed Impressions: Service Date/Time: Wednesday, January 25, 2017 16:52 - CONCLUSION: C5-6 broad-based disc osteophyte complex with superimposed left lateral disc protrusion resulting in moderate central canal stenosis and mild spinal cord deformity but no spinal cord signal abnormality. Moderate left neuroforaminal narrowing. Americo Kraft MD Objective Remarks awake and alert, NAD anicteric no nuchal rigidity lungs clear regular rhythm abdomen soft, nontender extremities no edema neuro : CN intact grossly no sensory deficits LUE- very very mild left sided weakness gait slow but steady A/P Problem List: (1) LUE weakness ICD Code: R29.898 Status: Acute (2) Weakness of left lower extremity ICD Code: R29.898 Status: Acute (3) Hyperglycemia ICD Code: R73.9 Status: Acute Assessment and Plan This is a 51-year-old right handed female who presents to the emergency department because of intermittent left upper and lower extremity paresthesias and weakness for 5 days worse today becoming more persistent Cervical Myelopathy- symptoms Left-sided tingling numbness more of LUE Heads CT and brain MRI without acute findings. She had complete neurologic workup 6 months ago. -neurology ff. Neurosurgery - seen by Dr. Herrera- possible surgical candidate Neuropathy/Dizziness - likely with some autonomic involvement from Uncontrolled DM. Zofran prn for nausea check orthostatics- negative DM type, elevated readings. . a1C 11.7. reinforced diabetes education Disocntinued metformin secondary to acute kidney injury. start patient on Insulin regimen- bid Acute kidney injury with hyponatremia. Resolved. Continue IV hydration and avoid nephrotoxins Hold losartan and hydrochlorothiazide. Hypertensive urgency. Improved Bp readings. started on Norvasc and added as needed medications clonidine and hydralazine to keep blood pressure less than 160/90. UTI - Quinolone DVT prophylaxis with SCD and early ambulation/ Mike Machuca MD Jan 27, 2017 11:30
[2017-01-27] MEDS: INSULIN HUMAN NPH/R 70/30 1,000 UNITS/10 ML VIAL SQ SCH (17:19)
--- NOTE | 2017-01-27 18:14 | HHI.NSPN ---
Note Status Status: Progress Note Interval History Interval History Ms. Burton is a 51-year-old -[place] female with history of diabetes, hyperlipidemia, hypertension, obesity, and TIA. She presented to the [facility] Emergency Room due to left upper and lower extremity numbness with mild weakness for five days, and slowly progressively worsening. She denies speech difficulty, headache, dizziness, double vision or facial numbness. The patient states that she had a similar episode back in July and she was diagnosed as TIA, however she did not recover completely and she states that these events "come and go". Occasionally she feels weak and drags her left leg. She denies severe pain. She reports that she has noticed some tingling and radiating pain in the left lower extremity with mild stiffness of the neck, but denies deep pain in the neck. She also denies injury or falls. Upon presentation to the emergency room, her blood pressure was very elevated, 237/112. MRI of the cervical spine show severe degenerative changes with spinal cord compression. She was evaluated by a neurologist. A neurosurgical consultation was requested 01/27. She berkley on severe pain, with a persistent left C6 radiculopathy Labs, Micro, & Vital Signs Results Date Time Temp Pulse Resp B/P Pulse Ox O2 Delivery O2 Flow Rate FiO2 01/27/17 16:00 98.0 79 19 137/64 100 145/68 139/67 01/27/17 12:15 80 158/80 156/75 159/78 Manual Cuff/Palpation 01/27/17 11:55 97.6 78 18 148/78 99 01/27/17 10:30 73 01/27/17 08:00 98.1 78 18 142/71 98 01/27/17 04:00 96.5 80 18 163/79 100 01/27/17 00:00 97.3 80 18 122/65 99 01/26/17 20:40 74 01/26/17 20:00 97.3 75 18 155/76 100 01/27/17 07:00 Intake Total 720 ml Balance 720 ml Constitutional Vital Signs Date Time Temp Pulse Resp B/P Pulse Ox O2 Delivery O2 Flow Rate FiO2 01/27/17 16:00 98.0 79 19 137/64 100 145/68 139/67 01/27/17 12:15 80 158/80 156/75 159/78 Manual Cuff/Palpation 01/27/17 11:55 97.6 78 18 148/78 99 01/27/17 10:30 73 01/27/17 08:00 98.1 78 18 142/71 98 01/27/17 04:00 96.5 80 18 163/79 100 01/27/17 00:00 97.3 80 18 122/65 99 01/26/17 20:40 74 01/26/17 20:00 97.3 75 18 155/76 100 01/27/17 07:00 Intake Total 720 ml Balance 720 ml Review of Systems/Exam Exam ms Burton is alert, awake and oriented to time, place and person. Speech is fluent. Higher cognitive functions are normal. Cranial nerve examination demonstrates the pupils to be equal, round, and reactive to light. Extra-ocular movements are intact. Facial motor and sensory function are normal and symmetrical. Gross hearing is intact, bilaterally. The uvula is midline and elevates symmetrically with the soft palate. Sternocleidomastoid and trapezius muscles have normal and symmetrical strength. Other cranial nerves are intact. Neck is soft and supple. Cervical spine has a decreased range of motion in anterior flexion, extension, lateral bending, and rotation without pain. There is no tenderness to palpation to the spinous processes or paraspinal muscles. Motor examination right upper extremity strength is 5 out of 5 in all major muscle groups. Left upper extremity 4+ left shoulder abduction and wrist and elbow extension. Normal wrist extension. Mild weakness 4+/5 finger flexion. Right lower extremity 5 out 5 in all major muscle groups. Left lower extremity, hip flexion 5-/5. Foot plantar flexion 5-/5, otherwise 5/5. Normal tone. Sensation is diminished in a left C6 dermatome, to light touch and pinprick. Reflexes 2+ bilateral and symmetrical. Negative Kolb sign. Negative crossed abductor reflex. 1+ bilateral ankle reflexes. Plantars bilateral downgoing. Cerebellar examination is intact to [id number] test, rapid rhythmic alternating motion. There is no dysmetria, dysdiadochokinesia, truncal ataxia, or tremor. Medications Current Medications Current Medications Sodium Chloride 2 ml 2 ml UNSCH PRN IVF FLUSH AFTER USING IV ACCESS; Start 01/25 at 12:00; Stop 01/30/17 at 17:56; Status DC Sodium Chloride (NS 1000 ml Inj) 1,000 ml @ 999 mls/hr BOLUS ONCE IV Last administered on 01/25/17 13:00; Start 01/25/17 at 13:00; Stop 01/25/17 at 14:00; Status DC Insulin Human Regular 6 units 6 units ONCE ONCE IV PUSH Last administered on 13:00; Start 01/25/17 at 13:00; Stop 01/25/17 at 13:01; Status DC Sodium Chloride (NS 1000 ml Inj) 1,000 ml @ 70 mls/hr [id number] IV Last administered on 01/27/17 23:50; Start 01/25/17 at 14:00; Stop 01/28/17 at 12:47; Status DC Clonidine (Catapres) 0.1 mg Q6H PRN PO SBP>160, DBP>90 Last administered on 01/28 06:57; Start 01/25/17 at 16:00; Stop 02/01/17 at 18:30; Status DC Aspirin (Aspirin) 325 mg DAILY PO Last administered on 01/28/17 08:59; Start at 09:00; Stop 01/28/17 at 12:46; Status DC Atorvastatin Calcium (Lipitor) 10 mg HS PO Last administered on 01/27/17 20:47 ; Start 01/25/17 at 21:00; Stop 01/28/17 at 10:50; Status DC Gabapentin (Neurontin) 800 mg TID PO Last administered on 02/01/17 18:24; Start 01/25/17 at 18:00; Stop 02/01/17 at 18:30; Status DC Glimepiride (Amaryl) 4 mg DAILY PO Last administered on 01/27/17 08:36; Start 01/26/17 at 09:00; Stop 01/27/17 at 11:31; Status DC Pantoprazole Sodium (Protonix) 20 mg DAILY PO Last administered on 01/30/17 09: 44; Start 01/26/17 at 09:00; Stop 01/30/17 at 18:19; Status DC Dextrose (D50w (Vial) Inj) 50 ml UNSCH PRN IV HYPOGLYCEMIA-SEE COMMENTS; Start 01/25/17 at 16:15; Stop 02/01/17 at 18:30; Status DC Glucagon (Glucagon Inj) 1 mg UNSCH PRN OTHER HYPOGLYCEMIA-SEE COMMENTS; Start 01/25/17 at 16:15; Stop 02/01/17 at 18:30; Status DC Insulin Aspart (NovoLOG SUPPLEMENTAL SCALE) 1 ACHS SLIDING SCALE SQ Last administered on 02/01/17 15:52; Start 01/25/17 at 21:00; Stop 02/01/17 at 18:30; Status DC Amlodipine Besylate (Norvasc) 5 mg DAILY PO Last administered on 02/01/17 08:13 ; Start 01/26/17 at 09:00; Stop 02/01/17 at 18:30; Status DC Hydralazine HCl (Apresoline Inj) 10 mg Q6H PRN IV blood pressure over 160/90 Last administered on 01/30/17 12:20; Start 01/25/17 at 16:15; Stop 02/01/17 at 18: 30; Status DC Ondansetron HCl (Zofran Inj) 4 mg Q6H PRN IV NAUSEA Last administered on 20:48; Start 01/25/17 at 16:15; Stop 02/01/17 at 18:30; Status DC Senna/Docusate Sodium (Abi-Colace) 1 tab BID PRN PO CONSTIPATION Last administered on 02/01/17 08:26; Start 01/25/17 at 16:15; Stop 02/01/17 at 18:30; Status DC Calcium Carbonate 1000 mg 1,000 mg TID PRN CHEW DYSPEPSIA; Start 01/25/17 at 16: 15; Stop 02/01/17 at 18:30; Status DC Ceftriaxone Sodium/Sodium Chloride (Rocephin Inj/NS Inj) 100 ml @ 200 mls/hr Q24H IV Last administered on 01/27/17 20:49; Start 01/25/17 at 20:00; Stop at 10:01; Status DC Tramadol HCl (Ultram) 50 mg Q6H PRN PO HEADACHE/PAIN 1-10 Last administered on 01/27/17 23:48; Start 01/26/17 at 16:45; Stop 01/30/17 at 18:13; Status DC Insulin Human Isoph/Insulin Regular (NovoLIN 70/30 INJ) 5 units BID@08,17 SQ Last administered on 01/31/17 16:41; Start 01/27/17 at 17:00; Stop 01/31/17 at 17: 46; Status DC Levofloxacin (Levaquin) 500 mg Q24H PO Last administered on 01/31/17 11:25; Start 01/28/17 at 11:00; Stop 01/31/17 at 11:01; Status DC Promethazine HCl (Phenergan Supp) 12.5 mg PCHS RECTAL ; Start 01/28/17 at 13:30; Stop 02/01/17 at 18:30; Status DC Atorvastatin Calcium 20 mg 20 mg HS PO Last administered on 01/31/17 20:56; Start 01/28/17 at 21:00; Stop 02/01/17 at 18:30; Status DC Sodium Chloride 1,000 ml @ 100 mls/hr Q10H IV Last administered on 01/30/17 06 :00; Start 01/30/17 at 06:00; Stop 01/30/17 at 17:55; Status DC Cefazolin Sodium/ Dextrose 50 ml @ 150 mls/hr ONCE ONCE IV Last administered on 01/30/17 14:20; Start 01/30/17 at 06:00; Stop 01/30/17 at 06:19; Status DC Vancomycin HCl/ Sodium Chloride (Vancomycin Inj/ NS 250 ml Inj) 250 ml @ 250 mls/hr ONCE ONCE IV Last administered on 01/30/17 14:00; Start 01/30/17 at 06: 00; Stop 01/30/17 at 06:59; Status DC Chlorhexidine Gluconate 1 applic 1 applic HS TOP Last administered on 01/29/17 21:00; Start 01/28/17 at 21:00; Stop 01/29/17 at 21:01; Status DC Lactated Ringer's 1,000 ml @ 30 mls/hr Q24H PRN IV SEE LABEL COMMENTS; Start at 05:30; Stop 01/30/17 at 17:55; Status DC Sodium Chloride (NS 500 ml Inj) 500 ml @ 30 mls/hr [id number] PRN IV SEE LABEL COMMENTS; Start 01/30/17 at 05:30; Stop 01/30/17 at 17:55; Status DC Metoprolol Tartrate (Lopressor) 25 mg BENCH [employer]ENTICE PRN PO SEE LABEL COMMENTS; Start 01/30/17 at 05:30; Stop 02/01/17 at 18:30; Status DC Povidone Iodine (Betadine 5% Antisepsis Kit) 1 applic B[employer]PRENTICE PRN EACH NARE SEE LABEL COMMENTS; Start 01/30/17 at 05:30; Stop 02/01/17 at 18:30; Status DC Chlorhexidine Gluconate (Chlorhexidine 2% Cloth) 3 pack [employer]ENTICE PRN TOPICAL SEE LABEL COMMENTS; Start 01/30/17 at 05:30; Stop 02/01/17 at 18:30; Status DC Insulin Human Regular (NovoLIN R INJ) See Protocol Table ... B[employer]PRENTICE PRN SQ SEE PROTOCOL TABLE; Start 01/30/17 at 05:30; Stop 02/02/17 at 05:29; Status Cancel Microfibriller Collagen Hemostat (Avitene Bandage) 1 bandage STK-MED ONCE .ROUTE ; Start 01/30/17 at 07:50; Stop 01/30/17 at 07:51; Status DC Thrombin (Thrombin Top Soln) 10,000 units STK-MED ONCE .ROUTE ; Start 01/30/17 at 07:50; Stop 01/30/17 at 07:51; Status DC Gelatin (Gelfoam 100 Top) 1 foam STK-MED ONCE .ROUTE ; Start 01/30/17 at 07:50; Stop 01/30/17 at 07:51; Status DC Gentamicin Sulfate 240 mg 240 mg STK-MED ONCE .ROUTE ; Start 01/30/17 at 07:51; Stop 01/30/17 at 07:52; Status DC Cefazolin Sodium/ Dextrose (Ancef 2 Gm Premix) 50 ml @ 150 mls/hr [employer]PRENTICE IV ; Start 01/30/17 at 14:00; Stop 01/30/17 at 17:57; Status DC Acetaminophen (Ofirmev Inj) 1,000 mg STK-MED ONCE IV ; Start 01/30/17 at 14:40; Stop 01/30/17 at 14:41; Status DC Artificial Tears (Lacrilube Opht Oint) 3.5 applic STK-MED ONCE .ROUTE ; Start at 14:41; Stop 01/30/17 at 14:42; Status DC Midazolam HCl (Versed Inj) 2 mg STK-MED ONCE .ROUTE ; Start 01/30/17 at 14:41; Stop 01/30/17 at 14:42; Status DC Fentanyl Citrate (fentaNYL INJ) 500 mcg STK-MED ONCE .ROUTE ; Start 01/30/17 at 14:41; Stop 01/30/17 at 14:42; Status DC Famotidine (Pepcid Inj) 20 mg STK-MED ONCE .ROUTE ; Start 01/30/17 at 14:41; Stop 01/30/17 at 14:42; Status DC Microfibriller Collagen Hemostat (Avitene Bandage) 1 bandage STK-MED ONCE TOPICAL Last administered on 01/30/17 16:02; Start 01/30/17 at 16:02; Stop at 16:27; Status DC Gelatin (Gelfoam 100 Top) 1 foam STK-MED ONCE TOP Last administered on 16:02; Start 01/30/17 at 16:02; Stop 01/30/17 at 16:27; Status DC Gentamicin Sulfate (Gentamicin Inj) 240 mg STK-MED ONCE IRRIGATION Last administered on 01/30/17 16:02; Start 01/30/17 at 16:02; Stop 01/30/17 at 16:27; Status DC Thrombin 63024 units 10,000 units STK-MED ONCE TOP Last administered on 16:02; Start 01/30/17 at 16:02; Stop 01/30/17 at 16:27; Status DC Potassium Chloride/Sodium Chloride (NS + KCl 20 Meq Inj) 1,000 ml @ 100 mls/hr Q10H IV Last administered on 02/01/17 05:10; Start 01/30/17 at 17:28; Stop at 18:30; Status DC IV Flush (NS Flush) 2 ml UNSCH PRN IVF FLUSH AFTER USING IV ACCESS; Start at 17:30; Stop 02/01/17 at 18:30; Status DC IV Flush 2 ml 2 ml BID IVF ; Start 01/30/17 at 21:00; Stop 02/01/17 at 18:30; Status DC Cefazolin Sodium/ Dextrose (Ancef 2 Gm Premix) 50 ml @ 100 mls/hr Q8H IV Last administered on 01/31/17 13:15; Start 01/30/17 at 22:00; Stop 01/31/17 at 14:29; Status DC Docusate Sodium (Colace) 100 mg BID PO Last administered on 02/01/17 08:13; Start 01/30/17 at 21:00; Stop 02/01/17 at 18:30; Status DC Pantoprazole Sodium (Protonix) 40 mg DAILY PO Last administered on 02/01/17 08: 13; Start 01/31/17 at 09:00; Stop 02/01/17 at 18:30; Status DC Acetaminophen/ Hydrocodone Bitart (Lopez 10-325 Mg) 1 tab Q4H PRN PO PAIN SCALE 1 TO 5; Start 01/30/17 at 17:30; Stop 02/01/17 at 18:30; Status DC Acetaminophen/ Hydrocodone Bitart (Lopez 10-325 Mg) 2 tab Q4H PRN PO PAIN SCALE 6 TO 10 Last administered on 02/01/17 15:26; Start 01/30/17 at 17:30; Stop 02/01/17 at 18:30; Status DC Morphine Sulfate (Morphine Inj) 2 mg Q2H PRN IV PUSH PAIN SCALE 1 TO 6 Last administered on 01/30/17 23:59; Start 01/30/17 at 17:30; Stop 02/01/17 at 18:30; Status DC Morphine Sulfate (Morphine Inj) 4 mg Q2H PRN IV PUSH PAIN SCALE 7 TO 10 Last administered on 01/31/17 15:32; Start 01/30/17 at 17:30; Stop 02/01/17 at 18:30; Status DC Acetaminophen (Tylenol) 650 mg Q4H PRN PO TEMPERATURE > 101.5 F; Start 01/30/17 at 17:30; Stop 02/01/17 at 18:30; Status DC Dexamethasone Sodium Phosphate (Decadron Inj) 4 mg Q6HR IV PUSH Last administered on 02/01/17 11:50; Start 01/30/17 at 18:00; Stop 02/01/17 at 18:30; Status DC Morphine Sulfate (*morphine INJ PERIprocedure ONLY) 8 mg STK-MED ONCE .ROUTE Last administered on 01/30/17 17:54; Start 01/30/17 at 17:53; Stop 01/30/17 at 17: 54; Status DC Promethazine HCl (*PHENERGAN INJ PERIprocedural ONLY) 25 mg STK-MED ONCE .ROUTE Last administered on 01/30/17 18:01; Start 01/30/17 at 18:00; Stop 01/30/17 at 18:01; Status DC Miscellaneous Information ALL NURSING DEPARTME... UNSCH PRN .XX SEE LABEL COMMENTS; Start 01/30/17 at 19:00; Stop 01/31/17 at 18:59; Status DC Non-Formulary Medication 1 tab DAILY PO BPM; Start 02/01/17 at 09:00; Stop at 09:00; Status DC Insulin Human Isoph/Insulin Regular (NovoLIN 70/30 INJ) 8 units BID@08,17 SQ Last administered on 02/01/17 17:44; Start 02/01/17 at 08:00; Stop 02/01/17 at 18: 30; Status DC Losartan Potassium (Cozaar) 50 mg DAILY PO Last administered on 02/01/17 08:13 ; Start 02/01/17 at 09:00; Stop 02/01/17 at 18:30; Status DC Hydrochlorothiazide (Microzide) 12.5 mg DAILY PO Last administered on 02/01/17 08:13; Start 02/01/17 at 09:00; Stop 02/01/17 at 18:30; Status DC Phenol (Chloraseptic [place]) 2 spray Q2H PRN OROPHARYNG SORE THROAT Last administered on 02/01/17 18:26; Start 02/01/17 at 12:30; Stop 02/01/17 at 18:30; Status DC Attending Statement Neuro. I again reviewed her clinical and radiological findings. Continue.neuro checks in a serial fashion. Discussed again with her the alternatives for treatment, and I explained her that surgery is always a last resort Recommend TIA workup with an echocardiogram, carotid duplex and possible Pulmonary. Continue aggressive pulmonary toilette, nasotracheal suction, and breathing treatments with nebulizers. Daily PT and OT Nutrition. Continue Oral diet Renal. Continue to monitor closely urine output, BUN and creatinine Endocrine. Continue to Monitor serial Acu checks and SSI as needed in detail ID continue to monitor for signs of infection Continue Protonix for stress ulcer prophylaxis Continue Wilner hose and SCD's for DVT prophylaxis Ady Herrera MD Jan 27, 2017 18:14
[2017-01-27] MEDS: ATORVASTATIN 10 MG TAB PO SCH (20:47)
[2017-01-27] MEDS: cefTRIAXone INJ 1,000 MG in SODIUM CHLORIDE 0.9% INJ 100 ML IV SCH (20:49)
[2017-01-28] VITALS (8 sets, daily range): BP systolic 145–180; BP diastolic 69–83; PULSE 73–92; RESP 18–20; TEMP 96.6–98.6; O2SAT 96–100
[2017-01-28] MEDS: INSULIN ASPART SUPPLEMENTAL SCALE SQ SCH ×4 (06:43→21:00)
[2017-01-28] MEDS: cloNIDine HCL 0.1 MG TAB PO PRN (06:57)
[2017-01-28] MEDS: PANTOPRAZOLE SOD 20 MG DELAYED RELEASE TAB PO SCH (08:58)
[2017-01-28] MEDS: GABAPENTIN 400 MG CAP PO SCH ×3 (08:58→17:46)
[2017-01-28] MEDS: amLODIPine BESYLATE 5 MG TAB PO SCH (08:58)
[2017-01-28] MEDS: ASPIRIN 325 MG TAB PO SCH (08:59)
[2017-01-28] MEDS: INSULIN HUMAN NPH/R 70/30 1,000 UNITS/10 ML VIAL SQ SCH ×2 (08:59→17:47)
--- NOTE | 2017-01-28 10:44 | HHI.PR ---
Subjective Remarks patient complains of nausea no abdominal pain, headache strength same Objective Vitals Vital Signs Date Time Temp Pulse Resp B/P Pulse Ox O2 Delivery O2 Flow Rate FiO2 01/28/17 08:51 97.3 73 18 146/77 99 01/28/17 04:00 96.6 89 18 180/83 96 01/28/17 00:00 96.7 78 18 150/76 99 01/27/17 20:00 96.8 89 18 152/77 98 01/27/17 20:00 96.8 89 18 152/77 98 01/27/17 17:55 77 01/27/17 16:00 98.0 79 19 137/64 100 145/68 139/67 01/27/17 12:15 80 158/80 156/75 159/78 Manual Cuff/Palpation 01/27/17 11:55 97.6 78 18 148/78 99 I/O 01/27/17 01/27/17 01/27/17 01/28/17 01/28/17 01/28/17 07:00 15:00 23:00 07:00 15:00 23:00 Intake Total 1200 ml 840 ml Balance 1200 ml 840 ml Intake Oral 360 ml IV Total 840 ml 840 ml # Voids 1 2 Result Diagram: 01/25/17 1200 01/26/17 0736 Imaging Last Impressions Brain MRI 01/25/17 1201 Signed Impressions: Service Date/Time: Wednesday, January 25, 2017 12:32 - CONCLUSION: No acute intracranial findings. Americo Kraft MD Head CT 01/25/17 1154 Signed Impressions: Service Date/Time: Wednesday, January 25, 2017 12:20 - CONCLUSION: No acute disease. Silvestre Pretty MD FACR Cervical Spine MRI 01/25/17 0000 Signed Impressions: Service Date/Time: Wednesday, January 25, 2017 16:52 - CONCLUSION: C5-6 broad-based disc osteophyte complex with superimposed left lateral disc protrusion resulting in moderate central canal stenosis and mild spinal cord deformity but no spinal cord signal abnormality. Moderate left neuroforaminal narrowing. Americo Kraft MD Objective Remarks awake and alert, NAD anicteric no nuchal rigidity lungs clear regular rhythm abdomen soft, nontender extremities no edema neuro : CN intact grossly no sensory deficits LUE- very very mild left sided weakness gait slow but steady A/P Problem List: (1) LUE weakness ICD Code: R29.898 Status: Acute (2) Weakness of left lower extremity ICD Code: R29.898 Status: Acute (3) Hyperglycemia ICD Code: R73.9 Status: Acute Assessment and Plan This is a 51-year-old right handed female who presents to the emergency department because of intermittent left upper and lower extremity paresthesias and weakness for 5 days worse today becoming more persistent Cervical Myelopathy- symptoms Left-sided tingling numbness more of LUE Heads CT and brain MRI without acute findings. She had complete neurologic workup 6 months ago. -neurology ff. Neurosurgery - seen by Dr. Herrera- possible surgical candidate Neuropathy/Dizziness - likely with some autonomic involvement from Uncontrolled DM. Zofran prn for nausea- not working- change to Phenergan check orthostatics- negative DM type, elevated readings. . a1C 11.7. reinforced diabetes education Discontinued metformin secondary to acute kidney injury. start patient on Insulin regimen- bid beter readings- continue to adjust Acute kidney injury with hyponatremia. Resolved. Continue IV hydration and avoid nephrotoxins Hold losartan and hydrochlorothiazide. Hypertensive urgency. Improved Bp readings. started on Norvasc and added as needed medications clonidine and hydralazine to keep blood pressure less than 160/90. E coli UTI -Levaquin till 01/31 DVT prophylaxis with SCD and early ambulation/ Mike Machuca MD Jan 28, 2017 10:44
[2017-01-28] MEDS: LEVOFLOXACIN 500 MG TAB PO SCH (11:56)
--- NOTE | 2017-01-28 12:30 | HHI.NSPN ---
(Angélica Giles) Note Status Status: Progress Note (Angélica Giles) Interval History Interval History Ms. Burton is a 51-year-old -[place]ian female with history of diabetes, hyperlipidemia, hypertension, obesity, and TIA. She presented to the [facility] Emergency Room due to left upper and lower extremity numbness with mild weakness for five days, and slowly progressively worsening. She denies speech difficulty, headache, dizziness, double vision or facial numbness. The patient states that she had a similar episode back in July and she was diagnosed as TIA, however she did not recover completely and she states that these events "come and go". Occasionally she feels weak and drags her left leg. She denies severe pain. She reports that she has noticed some tingling and radiating pain in the left lower extremity with mild stiffness of the neck, but denies deep pain in the neck. She also denies injury or falls. Upon presentation to the emergency room, her blood pressure was very elevated, 237/112. 6/5: mild cervical pain, continues to complain of left upper extremity pain posteriorly to her hand. (Angélica Giles) Labs, Micro, & Vital Signs Results Date Time Temp Pulse Resp B/P Pulse Ox O2 Delivery O2 Flow Rate FiO2 01/28/17 12:22 92 01/28/17 08:51 97.3 73 18 146/77 99 01/28/17 04:00 96.6 89 18 180/83 96 01/28/17 00:00 96.7 78 18 150/76 99 01/27/17 20:00 96.8 89 18 152/77 98 01/27/17 20:00 96.8 89 18 152/77 98 01/27/17 17:55 77 01/27/17 16:00 98.0 79 19 137/64 100 145/68 139/67 01/28/17 07:00 Intake Total 1200 ml Balance 1200 ml Constitutional Vital Signs Date Time Temp Pulse Resp B/P Pulse Ox O2 Delivery O2 Flow Rate FiO2 01/28/17 12:22 92 01/28/17 08:51 97.3 73 18 146/77 99 01/28/17 04:00 96.6 89 18 180/83 96 01/28/17 00:00 96.7 78 18 150/76 99 01/27/17 20:00 96.8 89 18 152/77 98 01/27/17 20:00 96.8 89 18 152/77 98 01/27/17 17:55 77 01/27/17 16:00 98.0 79 19 137/64 100 145/68 139/67 01/28/17 07:00 Intake Total 1200 ml Balance 1200 ml (Angélica Giles) Review of Systems/Exam Exam Alert and oriented x 3. Speech is fluent. CN: pupils equal, facial motor symmetric. Neck: mild decrease range of motion with discomfort Motor: 4 to 5-/ left deltoid, biceps, triceps, 4/5 left program services assistant and hand intrinsic , 5/5 right upper extremity and lower extremities b/l Sensory: decreased left C6 distribution Negative Kolb's sign bilaterally Plantars bilateral downgoing. No ankle clonus (Angélica Giles) Exam Ms Burton is alert and oriented x 3. Speech is fluent. CN: pupils equal, facial motor symmetric. Neck: mild decrease range of motion with discomfort Motor: 4 /5 left deltoid, biceps, triceps, 4/5 left program services assistant and hand intrinsic, 5/ 5 right upper extremity and lower extremities b/l Sensory: decreased left C6 distribution Negative Kolb's sign bilaterally Plantars bilateral downgoing. No ankle clonus Cerebellar exam unremarkable (Ady Herrera MD) Medications Current Medications Current Medications Medications (Trade) Dose Ordered Sig/Akanksha Route PRN Reason Start Time Stop Time Status Last Admin Dose Admin Sodium Chloride 2 ml 2 ml UNSCH PRN IVF FLUSH AFTER USING IV ACCESS 01/25/17 12:00 Sodium Chloride (NS 1000 ml Inj) 1,000 ml @ 70 mls/hr [id number] IV 01/25/17 14:00 01/27/17 23:50 Clonidine (Catapres) 0.1 mg Q6H PRN PO SBP>160, DBP>90 01/25/17 16:00 01/28/17 06:57 Aspirin (Aspirin) 325 mg DAILY PO 01/26/17 09:00 01/28/17 08:59 Gabapentin (Neurontin) 800 mg TID PO 01/25/17 18:00 01/28/17 08:58 Pantoprazole Sodium (Protonix) 20 mg DAILY PO 01/26/17 09:00 01/28/17 08:58 Dextrose (D50w (Vial) Inj) 50 ml UNSCH PRN IV HYPOGLYCEMIA-SEE COMMENTS 01/25/17 16:15 Glucagon (Glucagon Inj) 1 mg UNSCH PRN OTHER HYPOGLYCEMIA-SEE COMMENTS 01/25/17 16:15 Amlodipine Besylate (Norvasc) 5 mg DAILY PO 01/26/17 09:00 01/28/17 08:58 Hydralazine HCl (Apresoline Inj) 10 mg Q6H PRN IV blood pressure over 160/90 01/25/17 16:15 Ondansetron HCl (Zofran Inj) 4 mg Q6H PRN IV NAUSEA 01/25/17 16:15 01/27/17 20:48 Senna/Docusate Sodium (Abi-Colace) 1 tab BID PRN PO CONSTIPATION 01/25/17 16:15 Calcium Carbonate (Tums Chew) 1,000 mg TID PRN CHEW DYSPEPSIA 01/25/17 16:15 Tramadol HCl (Ultram) 50 mg Q6H PRN PO HEADACHE/PAIN 1-10 01/26/17 16:45 01/27/17 23:48 Insulin Human Isoph/Insulin Regular (NovoLIN 70/30 INJ) 5 units BID@08,17 SQ 01/27/17 17:00 01/28/17 08:59 Levofloxacin (Levaquin) 500 mg Q24H PO 01/28/17 11:00 01/31/17 11:01 01/28/17 11:56 Promethazine HCl (Phenergan Supp) 12.5 mg PCHS RECTAL 01/28/17 13:30 Atorvastatin Calcium (Lipitor) 20 mg HS PO 01/28/17 21:00 (Angélica Giles) Medical Decision Making MDM Remarks 51 y/o female complains of cervical and left upper extremity pain, MRI shows cervical spondylosis at C5-6 with moderate canal with left foraminal stenosis ( Angélica Giles) Plan Plan Remarks discussed with patient regarding continuing conservative management vs surgical decompression, pt requests to undergo surgical decompression scheduled for surgery Wed 01/30 for C5-6 ACDF (Angélica Giles) Attending Statement She has severe cervical spinal stenosis, especially at C5-C6 with severe left- sided pain and cutting current evidence of C6 radiculopathy. The alternative of treatment have been again discussed with her. She has undergone conservative treatment physical therapy and arthrodesis anti-inflammatories and pain management. I offered her the alternative surgical decompression as we did C5-6 anterior cervical discectomy and arthrodesis as a last resort. We have discussed the details including the [id number] details of the surgical procedure, its indications, alternatives, risks, and potential complications. Risks and potential complications include, but are not limited to, infection, blood loss, CSF leak, partial or complete loss of sight in one or both eyes, paresis, paralysis, permanent pain or difficulty swallowing, loss of bowel or bladder function, complications from anesthesia, blood clot, stroke, myocardial infarction, or even . The exam, history, and the medical decision-making described in the above note were completed with the assistance of the mid-level provider. I reviewed and agree with the findings presented. I attest that I had a [id number] encounter with the patient on the same day, and personally performed and documented my assessment and findings in the medical record. (Ady Herrera MD) Angélica Giles Jan 28, 2017 12:29 Ady Herrera MD Jan 28, 2017 15:28
[2017-01-28] MEDS: PROMETHAZINE HCL 12.5 MG SUPP RECTAL SCH ×3 (13:23→21:00)
--- NOTE | 2017-01-28 16:36 | HHI.PR ---
Review/Management Diagnosis - History of diabetes mellitus - History of TIA -History of hypertension -Degenerative cervical spinal disease/ cervical myelopathy. Plan 1. Neuro checks q.4 hourly. 2. Continue home medications. 3. Fall precautions. 4. DVT prophylaxis. 5. GI prophylaxis 6. For neurosurgical intervention Diagnosis/Plan: Subjective Subjective Comments No reported events overnight Denies headache, nausea or dizziness cardiac ECHO revealed EF 65-70%. Active Medications Current Medications Medications (Trade) Dose Ordered Sig/Akanksha Route Start Time Stop Time Status Last Admin (NS Flush) 2 ml UNSCH PRN IVF 01/25/17 12:00 (Catapres) 0.1 mg Q6H PRN PO 01/25/17 16:00 01/28/17 06:57 (Neurontin) 800 mg TID PO 01/25/17 18:00 01/28/17 13:23 (Protonix) 20 mg DAILY PO 01/26/17 09:00 01/28/17 08:58 (D50w (Vial) Inj) 50 ml UNSCH PRN IV 01/25/17 16:15 (Glucagon Inj) 1 mg UNSCH PRN OTHER 01/25/17 16:15 (Norvasc) 5 mg DAILY PO 01/26/17 09:00 01/28/17 08:58 (Apresoline Inj) 10 mg Q6H PRN IV 01/25/17 16:15 (Zofran Inj) 4 mg Q6H PRN IV 01/25/17 16:15 01/27/17 20:48 (Abi-Colace) 1 tab BID PRN PO 01/25/17 16:15 (Tums Chew) 1,000 mg TID PRN CHEW 01/25/17 16:15 (Ultram) 50 mg Q6H PRN PO 01/26/17 16:45 01/27/17 23:48 (NovoLIN 70/30 INJ) 5 units BID@,17 SQ 01/27/17 17:00 01/28/17 08:59 (Levaquin) 500 mg Q24H PO 01/28/17 11:00 01/31/17 11:01 01/28/17 11:56 (Phenergan Supp) 12.5 mg PCHS RECTAL 01/28/17 13:30 Atorvastatin Calcium 20 mg 20 mg HS PO 01/28/17 21:00 Sodium Chloride 1,000 ml @ 100 mls/hr Q10H IV 01/30/17 06:00 Cefazolin Sodium/ Dextrose 50 ml @ 150 mls/hr ONCE ONCE IV 01/30/17 06:00 01/30/17 06:19 (Vancomycin Inj/ NS 250 ml Inj) 250 ml @ 250 mls/hr ONCE ONCE IV 01/30/17 06:00 01/30/17 06:59 (Hibiclens 4% Top Soln) 1 applic HS TOP 01/28/17 21:00 01/29/17 21:01 Allergies Allergies Coded Allergies Tylenol #3 (Verified Allergy, Severe, RASH, 08/23/16) Zyrtec (Verified Allergy, Severe, RASH, 08/23/16) Septra (Verified Allergy, Mild, HIVES, 08/23/16) Exam I&O / VS 01/27/17 01/27/17 01/28/17 15:00 23:00 07:00 Intake Total 1200 ml Balance 1200 ml Intake Oral 360 ml IV Total 840 ml Vital Signs Date Time Temp Pulse Resp B/P Pulse Ox O2 Delivery O2 Flow Rate FiO2 01/28/17 12:22 92 01/28/17 12:00 97.8 77 20 145/69 100 01/28/17 08:51 97.3 73 18 146/77 99 01/28/17 04:00 96.6 89 18 180/83 96 01/28/17 00:00 96.7 78 18 150/76 99 01/27/17 20:00 96.8 89 18 152/77 98 01/27/17 20:00 96.8 89 18 152/77 98 01/27/17 17:55 77 Exam Comments GENERAL: Awake, alert, oriented, surrounded by several family members, not in acute distress, anxious. HEAD, EYES, EARS, NOSE AND THROAT: Atraumatic, normocephalic. Intact hearing and intact vision. NECK: Soft, supple. No signs of meningeal irritation. CARDIOVASCULAR: Regular rate and rhythm. RESPIRATORY: Clear to auscultation. No wheezes GASTROINTESTINAL: Soft, nontender. MUSCULOSKELETAL: Without clubbing, edema or cyanosis. Moves all four extremities. NEUROLOGIC: Awake, alert, oriented to time, person and place. Cranial nerve examination is grossly intact. No facial asymmetry. Intact external ocular motility. Pupils are equally reacting to light and accommodation. No speech difficulty. No dysarthria. No dysphagia. Intact speech content. Motor examination bilateral 5/5. No abnormal movement. Normal tone. Left upper extremity grade 5- left shoulder abduction and wrist and elbow extension. Normal wrist extension. Mild weakness 5-/5 finger flexion. Left lower extremity, hip flexion 5-/5. Foot plantar flexion 5-/5, otherwise 5/5. Normal tone. No abnormal movements. Sensation is diminished left forearm. Reflexes 2+ bilateral and symmetrical. Negative Kolb sign. Negative crossed abductor reflex. Sluggish bilateral ankle reflexes. Plantars bilateral downgoing. Gait is intact. Stance is intact. Toe walking and heel walking are intact. PSYCHOLOGICAL: Normal mood and behavior Objective Micro and Labs Date/Time Procedure Status Source Growth 01/25/17 13:30 Urine Culture - Final Complete Urine Catheterized Urine Escherichia Coli Chel Olivier MD Jan 28, 2017 16:36 Chel Olivier MD Jan 28, 2017 16:36
[2017-01-28] MEDS: CHLORHEXIDINE GLUCONATE 4% SOLN 120 ML BTL TOP SCH (21:00)
[2017-01-28] MEDS: ATORVASTATIN 20 MG TAB PO SCH (21:28)
[2017-01-29] VITALS (8 sets, daily range): BP systolic 116–182; BP diastolic 53–80; PULSE 73–98; RESP 16–21; TEMP 97.5–98.1; O2SAT 98–100
[2017-01-29] MEDS: INSULIN ASPART SUPPLEMENTAL SCALE SQ SCH ×4 (06:29→20:48)
[2017-01-29] MEDS: INSULIN HUMAN NPH/R 70/30 1,000 UNITS/10 ML VIAL SQ SCH ×2 (08:29→17:44)
[2017-01-29] MEDS: amLODIPine BESYLATE 5 MG TAB PO SCH (08:29)
[2017-01-29] MEDS: GABAPENTIN 400 MG CAP PO SCH ×3 (08:29→17:43)
[2017-01-29] MEDS: PANTOPRAZOLE SOD 20 MG DELAYED RELEASE TAB PO SCH (08:29)
[2017-01-29] MEDS: PROMETHAZINE HCL 12.5 MG SUPP RECTAL SCH ×4 (08:30→20:46)
--- NOTE | 2017-01-29 10:21 | HHI.PR ---
Subjective Remarks looking forward to surgery- 01/30 Objective Vitals Vital Signs Date Time Temp Pulse Resp B/P Pulse Ox O2 Delivery O2 Flow Rate FiO2 01/29/17 07:49 97.5 75 21 140/66 100 01/29/17 04:13 97.9 82 20 116/53 99 01/29/17 00:15 97.5 84 18 141/69 100 01/28/17 21:45 78 01/28/17 21:02 98.6 86 19 155/72 99 01/28/17 15:00 97.8 91 20 152/77 100 01/28/17 12:22 92 01/28/17 12:00 97.8 77 20 145/69 100 I/O 01/28/17 01/28/17 01/28/17 01/29/17 01/29/17 01/29/17 07:00 15:00 23:00 07:00 15:00 23:00 Intake Total 840 ml Balance 840 ml IV Total 840 ml # Voids 2 4 2 # Bowel Movements 0 Result Diagram: 01/25/17 1200 01/26/17 0736 Imaging Last Impressions Brain MRI 01/25/17 1201 Signed Impressions: Service Date/Time: Wednesday, January 25, 2017 12:32 - CONCLUSION: No acute intracranial findings. Americo Kraft MD Head CT 01/25/17 1154 Signed Impressions: Service Date/Time: Wednesday, January 25, 2017 12:20 - CONCLUSION: No acute disease. Silvestre Pretty MD FACR Cervical Spine MRI 01/25/17 0000 Signed Impressions: Service Date/Time: Wednesday, January 25, 2017 16:52 - CONCLUSION: C5-6 broad-based disc osteophyte complex with superimposed left lateral disc protrusion resulting in moderate central canal stenosis and mild spinal cord deformity but no spinal cord signal abnormality. Moderate left neuroforaminal narrowing. Americo Kraft MD Objective Remarks awake and alert, NAD anicteric no nuchal rigidity lungs clear regular rhythm abdomen soft, nontender extremities no edema neuro : CN intact grossly no sensory deficits LUE- very very mild left sided weakness gait slow but steady A/P Problem List: (1) LUE weakness ICD Code: R29.898 Status: Acute (2) Weakness of left lower extremity ICD Code: R29.898 Status: Acute (3) Hyperglycemia ICD Code: R73.9 Status: Acute Assessment and Plan This is a 51-year-old right handed female who presents to the emergency department because of intermittent left upper and lower extremity paresthesias and weakness for 5 days worse today becoming more persistent Cervical Myelopathy- symptoms Left-sided tingling numbness more of LUE Heads CT and brain MRI without acute findings. She had complete neurologic workup 6 months ago. -neurology ff. Neurosurgery - seen by Dr. Herrera- surgical candidate- plan for surgery 01/30 Neuropathy/Dizziness - Improved - likely with some autonomic involvement- from Uncontrolled DM. Zofran prn for nausea- not working- change to Phenergan check orthostatics- negative DM type, elevated readings. . a1C 11.7. reinforced diabetes education Discontinued metformin secondary to acute kidney injury. start patient on Insulin regimen- bid beter readings- continue to adjust Acute kidney injury with hyponatremia. Resolved. Continue IV hydration and avoid nephrotoxins Hold losartan and hydrochlorothiazide. Hypertensive urgency. Improved Bp readings. started on Norvasc and added as needed medications clonidine and hydralazine to keep blood pressure less than 160/90. E coli UTI -Levaquin till 01/31 DVT prophylaxis with SCD and early ambulation/ Mike Machuca MD Jan 29, 2017 10:21
[2017-01-29] MEDS: LEVOFLOXACIN 500 MG TAB PO SCH (11:22)
--- NOTE | 2017-01-29 12:34 | HHI.NSPN ---
(Angélica Giles) Note Status Status: Progress Note (Angélica Giles) Interval History Interval History Ms. Burton is a 51-year-old -[place] female with history of diabetes, hyperlipidemia, hypertension, obesity, and TIA. She presented to the [facility] Emergency Room due to left upper and lower extremity numbness with mild weakness for five days, and slowly progressively worsening. She denies speech difficulty, headache, dizziness, double vision or facial numbness. The patient states that she had a similar episode back in July and she was diagnosed as TIA, however she did not recover completely and she states that these events "come and go". Occasionally she feels weak and drags her left leg. She denies severe pain. She reports that she has noticed some tingling and radiating pain in the left lower extremity with mild stiffness of the neck, but denies deep pain in the neck. She also denies injury or falls. Upon presentation to the emergency room, her blood pressure was very elevated, 237/112. 01/28: mild cervical pain, continues to complain of left upper extremity pain posteriorly to her hand. 01/29: reports no changes to neuro sx, to OR tomorrow (Angélica Giles) Labs, Micro, & Vital Signs Results Date Time Temp Pulse Resp B/P Pulse Ox O2 Delivery O2 Flow Rate FiO2 01/29/17 11:44 98.1 85 20 152/69 100 01/29/17 10:55 73 01/29/17 07:49 97.5 75 21 140/66 100 01/29/17 04:13 97.9 82 20 116/53 99 01/29/17 00:15 97.5 84 18 141/69 100 01/28/17 21:45 78 01/28/17 21:02 98.6 86 19 155/72 99 01/28/17 15:00 97.8 91 20 152/77 100 01/29/17 07:00 Intake Total 840 ml Balance 840 ml Constitutional Vital Signs Date Time Temp Pulse Resp B/P Pulse Ox O2 Delivery O2 Flow Rate FiO2 01/29/17 11:44 98.1 85 20 152/69 100 01/29/17 10:55 73 01/29/17 07:49 97.5 75 21 140/66 100 01/29/17 04:13 97.9 82 20 116/53 99 01/29/17 00:15 97.5 84 18 141/69 100 01/28/17 21:45 78 01/28/17 21:02 98.6 86 19 155/72 99 01/28/17 15:00 97.8 91 20 152/77 100 01/29/17 07:00 Intake Total 840 ml Balance 840 ml (Angélica Giles) Review of Systems/Exam Exam Ms Burton is alert and oriented x 3. Speech is fluent. CN: pupils equal, facial motor symmetric. Neck: mild decrease range of motion with discomfort Motor: 4 /5 left deltoid, biceps, triceps, 4/5 left processing technologist and hand intrinsic, 5/ 5 right upper extremity and lower extremities b/l Sensory: decreased left C6 distribution Negative Kolb's sign bilaterally Plantars bilateral downgoing. No ankle clonus Cerebellar exam unremarkable (Angélica Giles) Medications Current Medications Current Medications Medications (Trade) Dose Ordered Sig/Akanksha Route PRN Reason Start Time Stop Time Status Last Admin Dose Admin Sodium Chloride (NS Flush) 2 ml UNSCH PRN IVF FLUSH AFTER USING IV ACCESS 01/25/17 12:00 Clonidine (Catapres) 0.1 mg Q6H PRN PO SBP>160, DBP>90 01/25/17 16:00 01/28/17 06:57 Gabapentin (Neurontin) 800 mg TID PO 01/25/17 18:00 01/29/17 08:29 Pantoprazole Sodium (Protonix) 20 mg DAILY PO 01/26/17 09:00 01/29/17 08:29 Dextrose (D50w (Vial) Inj) 50 ml UNSCH PRN IV HYPOGLYCEMIA-SEE COMMENTS 01/25/17 16:15 Glucagon (Glucagon Inj) 1 mg UNSCH PRN OTHER HYPOGLYCEMIA-SEE COMMENTS 01/25/17 16:15 Amlodipine Besylate (Norvasc) 5 mg DAILY PO 01/26/17 09:00 01/29/17 08:29 Hydralazine HCl (Apresoline Inj) 10 mg Q6H PRN IV blood pressure over 160/90 01/25/17 16:15 Ondansetron HCl (Zofran Inj) 4 mg Q6H PRN IV NAUSEA 01/25/17 16:15 01/27/17 20:48 Senna/Docusate Sodium (Abi-Colace) 1 tab BID PRN PO CONSTIPATION 01/25/17 16:15 Calcium Carbonate (Tums Chew) 1,000 mg TID PRN CHEW DYSPEPSIA 01/25/17 16:15 Tramadol HCl (Ultram) 50 mg Q6H PRN PO HEADACHE/PAIN 1-10 01/26/17 16:45 01/27/17 23:48 Insulin Human Isoph/Insulin Regular (NovoLIN 70/30 INJ) 5 units BID@08, SQ 01/27/17 17:00 01/29/17 08:29 Levofloxacin (Levaquin) 500 mg Q24H PO 01/28/17 11:00 01/31/17 11:01 01/29/17 11:22 Promethazine HCl (Phenergan Supp) 12.5 mg PCHS RECTAL 01/28/17 13:30 Atorvastatin Calcium 20 mg 20 mg HS PO 01/28/17 21:00 01/28/17 21:28 Sodium Chloride 1,000 ml @ 100 mls/hr Q10H IV 01/30/17 06:00 Cefazolin Sodium/ Dextrose 50 ml @ 150 mls/hr ONCE ONCE IV 01/30/17 06:00 01/30/17 06:19 Vancomycin HCl/ Sodium Chloride (Vancomycin Inj/ NS 250 ml Inj) 250 ml @ 250 mls/hr ONCE ONCE IV 01/30/17 06:00 01/30/17 06:59 Chlorhexidine Gluconate (Hibiclens 4% Top Soln) 1 applic HS TOP 01/28/17 21:00 01/29/17 21:01 01/28/17 21:00 (Angélica Giles) Medical Decision Making MDM Remarks 51 y/o female complains of cervical and left upper extremity pain, MRI shows cervical spondylosis at C5-6 with moderate canal with left foraminal stenosis ( Angélica Giles) Plan Plan Remarks tor OR tomorrow for C5-6 ACDF preop orders in NPO after midnight, consents in chart (Angélica Giles) Attending Statement The exam, history, and the medical decision-making described in the above note were completed with the assistance of the mid-level provider. I reviewed and agree with the findings presented. I attest that I had a [id number] encounter with the patient on the same day, and personally performed and documented my assessment and findings in the medical record. (Ady Herrera MD) Angélica Giles Jan 29, 2017 12:34 Ady Herrera MD Feb 03, 2017 19:15
[2017-01-29] MEDS: ATORVASTATIN 20 MG TAB PO SCH (20:46)
[2017-01-29] MEDS: hydrALAZINE HCL 20 MG/ML VIAL IV PRN (20:57)
[2017-01-29] MEDS: CHLORHEXIDINE GLUCONATE 4% SOLN 120 ML BTL TOP SCH (21:00)
[2017-01-30] MEDS ORDERED: POVIDONE IODINE 5% (ANTISEPSIS KIT) 4 APPLICATIONS EACH NARE PRN (05:30)
[2017-01-30] MEDS ORDERED: SODIUM CHLORID 0.9% 500 ML IV PRN (05:30)
[2017-01-30] MEDS ORDERED: INSULIN HUMAN REGULAR 1,000 UNITS/10 ML VIAL SQ PRN (05:30)
[2017-01-30] MEDS ORDERED: METOPROLOL TARTRATE 25 MG TAB PO PRN (05:30)
[2017-01-30] MEDS ORDERED: LACTATED RINGER'S 1000 ML IV PRN (05:30)
[2017-01-30] MEDS ORDERED: CHLORHEXIDINE GLUCONATE 2 % 1 PACK (2 CLOTHS) TOPICAL PRN (05:30)
[2017-01-30 05:37] VITALS: BP 128/66; PULSE 78; RESP 18; TEMP 97.8; O2SAT 98
[2017-01-30] MEDS ORDERED: VANCOMYCIN INJ 1,000 MG in SODIUM CHLOR 0.9% 250 ML INJ 250 ML IV ONE (06:00)
[2017-01-30] MEDS: SODIUM CHLOR 0.9% 1000 ML INJ 1,000 ML IV SCH ×2 (06:00→16:00)
[2017-01-30] MEDS: INSULIN ASPART SUPPLEMENTAL SCALE SQ SCH ×4 (06:22→21:21)
[2017-01-30 07:21] VITALS: PULSE 80
[2017-01-30] MEDS ORDERED: THROMBIN (TOPICAL) 5,000 UNIT VIAL ONE (07:50)
[2017-01-30] MEDS ORDERED: GELFOAM SIZE 100 ONE (07:50)
[2017-01-30] MEDS ORDERED: MICROFIBRILLAR COLLAGEN HEMOSTAT 70 X 35 MM BANDAGE ONE (07:50)
[2017-01-30] MEDS ORDERED: GENTAMICIN SULFATE 80 MG/2 ML VIAL ONE (07:51)
[2017-01-30 08:00] VITALS: BP 164/78; PULSE 89; RESP 18; TEMP 98; O2SAT 98
[2017-01-30] MEDS: INSULIN HUMAN NPH/R 70/30 1,000 UNITS/10 ML VIAL SQ SCH ×2 (08:00→17:00)
[2017-01-30] MEDS: PROMETHAZINE HCL 12.5 MG SUPP RECTAL SCH ×4 (09:30→21:00)
[2017-01-30] MEDS: GABAPENTIN 400 MG CAP PO SCH ×3 (09:44→17:53)
[2017-01-30] MEDS: PANTOPRAZOLE SOD 20 MG DELAYED RELEASE TAB PO SCH (09:44)
[2017-01-30] MEDS: amLODIPine BESYLATE 5 MG TAB PO SCH (09:44)
--- NOTE | 2017-01-30 10:44 | HHI.PR ---
Subjective Remarks looking forward to surgery this pm overnight no complains feels a little stronger on the left lE Objective Vitals Vital Signs Date Time Temp Pulse Resp B/P Pulse Ox O2 Delivery O2 Flow Rate FiO2 01/30/17 08:00 98.0 89 18 164/78 98 01/30/17 07:21 80 01/30/17 05:37 97.8 78 18 128/66 98 01/29/17 22:37 98.1 98 16 121/63 99 01/29/17 20:38 97.9 92 18 182/80 98 01/29/17 16:05 98.0 85 21 147/79 100 01/29/17 11:44 98.1 85 20 152/69 100 01/29/17 10:55 73 I/O 01/29/17 01/29/17 01/29/17 01/30/17 01/30/17 01/30/17 07:00 15:00 23:00 07:00 15:00 23:00 Intake Total 0 ml Balance 0 ml IV Total 0 ml # Voids 2 5 2 # Bowel Movements 1 0 Result Diagram: 01/25/17 1200 01/26/17 0736 Imaging Last Impressions Brain MRI 01/25/17 1201 Signed Impressions: Service Date/Time: Wednesday, January 25, 2017 12:32 - CONCLUSION: No acute intracranial findings. Americo Kraft MD Head CT 01/25/17 1154 Signed Impressions: Service Date/Time: Wednesday, January 25, 2017 12:20 - CONCLUSION: No acute disease. Silvestre Pretty MD FACR Cervical Spine MRI 01/25/17 0000 Signed Impressions: Service Date/Time: Wednesday, January 25, 2017 16:52 - CONCLUSION: C5-6 broad-based disc osteophyte complex with superimposed left lateral disc protrusion resulting in moderate central canal stenosis and mild spinal cord deformity but no spinal cord signal abnormality. Moderate left neuroforaminal narrowing. Americo Kraft MD Objective Remarks awake and alert, NAD anicteric no nuchal rigidity lungs clear regular rhythm abdomen soft, nontender extremities no edema neuro : CN intact grossly no sensory deficits LUE- very very mild left sided weakness A/P Problem List: (1) LUE weakness ICD Code: R29.898 Status: Acute (2) Weakness of left lower extremity ICD Code: R29.898 Status: Acute (3) Hyperglycemia ICD Code: R73.9 Status: Acute Assessment and Plan This is a 51-year-old right handed female who presents to the emergency department because of intermittent left upper and lower extremity paresthesias and weakness for 5 days worse today becoming more persistent Cervical Myelopathy- symptoms Left-sided tingling numbness more of LUE Heads CT and brain MRI without acute findings. She had complete neurologic workup 6 months ago. -neurology ff. Neurosurgery - seen by Dr. Herrera- surgical candidate- plan for surgery this pm Hypertensive urgency. Improved BP readings. on Norvasc and added as needed medications clonidine and hydralazine to keep blood pressure less than 160/90. monitor post op will benefit from DEVORAH/ARB- - consider starting post op- was on ARB- DC on admission due to WON E coli UTI -Levaquin till 01/31 Neuropathy/Dizziness - Improved - likely with some autonomic involvement- from Uncontrolled DM. Zofran prn for nausea- not working- change to Phenergan check orthostatics- negative DM type, elevated readings. . a1C 11.7. reinforced diabetes education Discontinued metformin secondary to acute kidney injury. start patient on Insulin regimen- 70/30 units bid SQ. better readings- continue to adjust Acute kidney injury with hyponatremia. Resolved. Continue IV hydration and avoid nephrotoxins DVT prophylaxis with SCD and early ambulation/ Mike Machuca MD Jan 30, 2017 10:44
[2017-01-30] MEDS: LEVOFLOXACIN 500 MG TAB PO SCH (11:00)
[2017-01-30 12:00] VITALS: BP 185/84; PULSE 89; RESP 19; TEMP 97.1; O2SAT 100
[2017-01-30] MEDS ORDERED: PHENYLEPH/NS 1000 MCG/10 ML SYR IV ONE (12:00)
[2017-01-30] MEDS ORDERED: NEOSTIGMINE 3 MG/3 ML SYR IV ONE (12:00)
[2017-01-30] MEDS ORDERED: ONDANSETRON HCL 4 MG/2 ML VIAL IV PUSH ONE (12:00)
[2017-01-30] MEDS ORDERED: LACTATED RINGER'S 1000 ML INJ 1,000 ML IV ONE (12:00)
[2017-01-30] MEDS ORDERED: PROPOFOL 200 MG/20 ML AMP IV ONE (12:00)
[2017-01-30] MEDS: hydrALAZINE HCL 20 MG/ML VIAL IV PRN (12:20)
[2017-01-30] MEDS: ceFAZolin 2 GM PREMIX 50 ML IV ONE ×2 (14:00→14:20)
[2017-01-30] MEDS ORDERED: ceFAZolin 2 GM PREMIX 50 ML IV SCH (14:00)
[2017-01-30] MEDS ORDERED: ACETAMINOPHEN 1000 MG/100 ML VIAL IV ONE (14:40)
[2017-01-30] MEDS ORDERED: MIDAZOLAM HCL 2 MG/2 ML VIAL ONE (14:41)
[2017-01-30] MEDS ORDERED: FAMOTIDINE 20 MG/2 ML VIAL ONE (14:41)
[2017-01-30] MEDS ORDERED: fentaNYL CITRATE 250 MCG/5 ML AMP ONE (14:41)
[2017-01-30] MEDS ORDERED: ARTIFICIAL TEARS OPTH OINT 3.5 APPLIC/3.5 GM TUBO ONE (14:41)
[2017-01-30] MEDS ORDERED: THROMBIN (TOPICAL) 5,000 UNIT VIAL TOP ONE (16:02)
[2017-01-30] MEDS ORDERED: GENTAMICIN SULFATE 80 MG/2 ML VIAL IRRIGATION ONE (16:02)
[2017-01-30] MEDS ORDERED: GELFOAM SIZE 100 TOP ONE (16:02)
[2017-01-30] MEDS ORDERED: MICROFIBRILLAR COLLAGEN HEMOSTAT 70 X 35 MM BANDAGE TOPICAL ONE (16:02)
[2017-01-30] MEDS ORDERED: ACETAMINOPHEN/HYDROcodone 325 MG/10 MG TAB PO PRN (17:30)
[2017-01-30] MEDS ORDERED: SODIUM CHLORIDE 0.9% FLUSH 5 ML FLUSH IVF PRN (17:30)
[2017-01-30] MEDS ORDERED: ACETAMINOPHEN 325 MG TAB PO PRN (17:30)
--- NOTE | 2017-01-30 17:31 | PD.OP ---
Operative Report Date of Surgery: Jan 30, 2017 Preoperative Diagnosis: Cervical stenosis with spinal cord compression and myelopathy Postoperative Diagnosis: Cervical stenosis with spinal cord compression and myelopathy Procedure: C5-6 anterior cervical discectomy, interbody arthodhesis using PEEK cage filled with autologous bone graft, Simplicity plate and screws Anesthesia: general Surgeon: Ady Herrera Retirement Consultant(s): Elyssa Valenzuela Operation and Findings: INDICATIONS FOR THE PROCEDURE Ms Burton is a 51 year-old female who presented with intractable neck pain and clinical evidence of left C6 upper extremity radiculopathy and myelopathy. She had severe spinal stenosis at C5-6. She failed maximum nonsurgical management. A surgical decompression and arthrodhesis were indicated. The [id number] details of the procedure, indications, alternatives, risks and potential complications were fully discussed with the patient. The patient fully understood. All The questions were answered. No guarantees were given. The patient voiced requesting the procedure and provided informed consents. The patient was offered the alternative of delaying the procedure and continuing with nonsurgical management. DETAILS OF THE SURGICAL PROCEDURE After the induction of general anesthesia, endotracheal intubation was performed. A Raines catheter, bilateral MOHIT hose, and sequential compression devices were placed and kept throughout the procedure. The patient was positioned supine on a Perez table with the head over a gel doughnut. All pressure points were carefully padded with egg crate mattress. The eyes were tapped shut after ointment was applied by the anesthesiologist to prevent corneal abrasion. A Khushi hugger was placed over the exposed lower body to maintain control of the core body temperature. The electrophysiological team placed the needles and electrodes in their proper location and baseline SSEP's and motor evoked potentials were registered. The anterior cervical region was prepped and draped in the usual sterile fashion. A localizing x-ray was performed with a C-arm. The surgical procedure was performed in several steps as follow: SURGICAL APPROACH A skin incision was made along the middle cervical crease with a #10 blade. The dissection was carried out through the platysma exposing the sternocleidomastoid muscle. The cervical spine was approached following the fascial layers of the neck just medial to the anterior border of the sternocleidomastoid and carotid sheath by a combination of sharp and dull dissection. The omohyoid muscle was identified and carefully dissected laterally and the deep cervical fascia was carefully opened. The longus colli muscles were retracted to each side of the midline. A marker was placed at the disc space C5-6 and a cross-table lateral x-ray performed with a C-arm. SURGICAL DECOMPRESSION In order to decompress the anterior surface of the spinal cord it was necessary to preform a microsurgical resection of the disk. At this point in the procedure the operating microscope was draped in the usual sterile fashion and brought to the field. The rest of the surgical procedure was performed using microdissection technique with the exception of the closure. Under the operative microscopic, an anterior osteophytic spur was carefully removed using the leksell, and a self-retaining retractor was placed underneath the longus colli muscle. The annulus at C5-6 was incised with a #15 blade and microdiscectomy was then carefully carried out using angled curets and pituitary forceps. The patient had a posterior osteophytic/disk complex which was producing mass affect on the anterior surface of the dural sac. This was carefully drilled with a TPS drill and resected with a think foot plate 2mm kerrison under high magnification. The posterior longitudinal ligament was then elevated with an angled curet and incised with a 15 bladed knife. A careful ressection of the posterior longitudinal ligament was carried out using a thin footplate 2 mm Kerrison. The decompression was then carried out laterally , and a bilateral foraminotomy was performed with a 2mm thin foot Kerrison. Then the vertebral bodies above and below the disk space were undercut using a 2 mm thin foot Kerrison. The epidural space was the systematically assessed with a nerve hook in search for disk fragments. An excellent decompression was achieved in both, the dural sac and bilateral exiting nerve roots. The incision was then irrigated with a large amount of antibiotic solution INTERBODY ARTHRODHESIS In order to avoid collapse of the disk space which would result in bilateral foraminal stenosis, and to increase the chances of a successful fusion, it was necessary to place an interbody cage filled with autologous bone. At this point of the procedure, the superior and inferior endplates were then evenly decorticated with a TPS drill. The use of a drill in combination with a curette allowed me to systematically remove the cartilaginous endplates, exposing healthy bone for the interbody arthrodesis. forteen millimeters distraction pins were then placed at the vertebral bodies adjacent to the disk space, and gentle distraction was applied. The size of the interbody cage was then assessed using different size spacers, and a rasp was used to ensure no residual cartilage. A PEEK cage of the appropriate size was selected, and the interbody arthrodesis was then preformed by carefully impacting a PEEK cage filled with autologous bone graft to the disc space C5-6. An excellent position of the cage was achieved. This was was confirmed anatomically by feelling the space posterior to the implant and distance to the anterior surface of the dural sac. Radiological confirmation of the position was performed with a cross lateral xray performed with the C-arm. INTERNAL INSTRUMENTAL FIXATION Once that the interbody device was in an appropriate position, it was necessary to stabilize the spine with anterior instrumentation. Anterior instrumentation has demonstrated to increase the rate of fusion, acelerate the patient's recovery, and decrease the rate of failed interbody grafts. At this point of the procedure, the distance between the vertebral bodies was carefully measures, and a Simplicity plate was brought to the field and presented in front of the C5 and 6 vertebral bodies. Waterproofing Machine Operator holes were then drilled using the TPS drill, and the plate was then secured to the spine using self-drilling, self-tapping screws. Initially, the inferior right screw was inserted, followed by placement of the contra lateral upper screw. The remaining screws were sequentially placed in a contra-lateral fashion. A proper purchase was achieved with all screws and the position of the cage, plate and screws, and alignment of the spine was assessed anatomically by direct visualization, and radiologically by performing a cross lateral xray of the cervical spine with the C-arm. CLOSURE The incision was irrigated with several liters of antibiotic solution. Hemostasis was achieved with a bipolar. The screws were locked to prevent backing out. A 7 mm Perez-Bolaños drain was left in the prevertebral space and externalized through a separate stab incision. The incision was then closed in layers. 3-0 Vicryl with interrupted sutures was used to close the platysma and subcutaneous tissue. The skin was closed with 4-0 running subcuticular Vicryl and Dermabond was applied to the skin. The drain was secured with a 3-0 nylon. At the end of the procedure the sponge, needle and instrument counts were all correct. The estimated blood loss was less than 30 cc. No blood transfusion was given. No intraoperative complications occurred. The patient received prophylactic antibiotics. The patient was then extubated and transferred to the recovery room in stable condition. Ady Herrera MD Jan 30, 2017 17:31
--- NOTE | 2017-01-30 17:51 | RADRPT ---
EXAM DATE/TIME: 01/30/2017 15:25 [facility] COMPARISON: FLUOROSCOPY PORTABLE UP TO 1HR, January 30, 2017, 0:00. INDICATIONS : Cervical fusion, C5-6. MEDICAL HISTORY : Unobtainable. SURGICAL HISTORY : Unobtainable. ENCOUNTER: Subsequent ACUITY: 1 day PAIN SCORE: Non-responsive. LOCATION: Neck. FINDINGS: Limited lateral C-spine demonstrates a fusion hardware to be in excellent position. CONCLUSION: 1. Fusion hardware in excellent position. Herminio Pretty MD on January 30, 2017 at 17:48 Board Certified Radiologist. This report was verified electronically.
[2017-01-30] MEDS ORDERED: *morphine SULFATE 8 MG/ML PERIprocedure ONLY ONE (17:53)
[2017-01-30] MEDS ORDERED: *PROMETHAZINE 25 MG/ML VIAL PERIprocedural use ONLY ONE (18:00)
[2017-01-30] MEDS: NS + KCL 20 MEQ INJ 1,000 ML IV SCH (18:15)
[2017-01-30] MEDS: DEXAMETHASONE SOD PHOS 4 MG/ML VIAL IV PUSH SCH ×2 (18:20→23:56)
[2017-01-30] MEDS ORDERED: DO NOT ADM ANY ANTICOAGULANT DRUGS PRN (19:00)
[2017-01-30 20:00] VITALS: BP 169/79; PULSE 95; RESP 22; TEMP 98.1; O2SAT 95
[2017-01-30 20:18] VITALS: O2SAT 99
[2017-01-30] MEDS: DOCUSATE SODIUM 100 MG CAP PO SCH (21:00)
[2017-01-30] MEDS: SODIUM CHLORIDE 0.9% FLUSH 5 ML FLUSH IVF SCH (21:00)
[2017-01-30] MEDS: ATORVASTATIN 20 MG TAB PO SCH (21:00)
[2017-01-30] MEDS: MORPHINE SULFATE 4 MG/ML INJ IV PUSH PRN ×2 (21:14→23:59)
[2017-01-30] MEDS: ceFAZolin 2 GM PREMIX 50 ML IV SCH (21:16)
[2017-01-31] VITALS (8 sets, daily range): BP systolic 130–167; BP diastolic 63–89; PULSE 80–99; RESP 16–19; TEMP 97.7–98.8; O2SAT 93–100
[2017-01-31] MEDS: NS + KCL 20 MEQ INJ 1,000 ML IV SCH ×3 (04:02→20:55)
[2017-01-31] MEDS: MORPHINE SULFATE 4 MG/ML INJ IV PUSH PRN ×2 (04:02→15:32)
[2017-01-31] MEDS: ceFAZolin 2 GM PREMIX 50 ML IV SCH ×2 (05:04→13:15)
[2017-01-31] MEDS: DEXAMETHASONE SOD PHOS 4 MG/ML VIAL IV PUSH SCH ×4 (05:06→23:14)
[2017-01-31] MEDS: INSULIN ASPART SUPPLEMENTAL SCALE SQ SCH ×4 (06:30→21:08)
[2017-01-31] MEDS: INSULIN HUMAN NPH/R 70/30 1,000 UNITS/10 ML VIAL SQ SCH ×2 (08:00→16:41)
[2017-01-31] MEDS: DOCUSATE SODIUM 100 MG CAP PO SCH ×2 (09:00→20:56)
[2017-01-31] MEDS: GABAPENTIN 400 MG CAP PO SCH ×3 (09:00→16:39)
[2017-01-31] MEDS: SODIUM CHLORIDE 0.9% FLUSH 5 ML FLUSH IVF SCH ×2 (09:00→20:56)
[2017-01-31] MEDS: amLODIPine BESYLATE 5 MG TAB PO SCH (09:00)
[2017-01-31] MEDS: PANTOPRAZOLE SOD 40 MG DELAYED RELEASE TAB PO SCH (09:00)
[2017-01-31] MEDS: PROMETHAZINE HCL 12.5 MG SUPP RECTAL SCH ×4 (09:30→20:56)
[2017-01-31] MEDS: LEVOFLOXACIN 500 MG TAB PO SCH (11:25)
[2017-01-31] MEDS: ACETAMINOPHEN/HYDROcodone 325 MG/10 MG TAB PO PRN ×2 (13:14→20:56)
--- NOTE | 2017-01-31 14:09 | HHI.NSPN ---
(Angélica Giles) Note Status Status: Progress Note (Angélica Giles) Interval History Interval History Ms. Burton is a 51-year-old -English female with history of diabetes, hyperlipidemia, hypertension, obesity, and TIA. She presented to the [facility] Emergency Room due to left upper and lower extremity numbness with mild weakness for five days, and slowly progressively worsening. She denies speech difficulty, headache, dizziness, double vision or facial numbness. The patient states that she had a similar episode back in July and she was diagnosed as TIA, however she did not recover completely and she states that these events "come and go". Occasionally she feels weak and drags her left leg. She denies severe pain. She reports that she has noticed some tingling and radiating pain in the left lower extremity with mild stiffness of the neck, but denies deep pain in the neck. She also denies injury or falls. Upon presentation to the emergency room, her blood pressure was very elevated, 237/112. 01/28: mild cervical pain, continues to complain of left upper extremity pain posteriorly to her hand. 01/29: reports no changes to neuro sx, to OR tomorrow 01/31: POD 1 s/p C5-6 ACDF, currently nauseaus but refusing zofran. c/o throat soreness. slight decrease in left arm pain (Angélica Giles) Labs, Micro, & Vital Signs Results Date Time Temp Pulse Resp B/P Pulse Ox O2 Delivery O2 Flow Rate FiO2 01/31/17 12:00 97.7 99 16 163/89 98 01/31/17 08:00 98.6 92 16 158/76 98 01/31/17 04:09 16 01/31/17 04:00 98.8 97 16 167/82 93 01/31/17 00:12 16 01/31/17 00:00 98.1 92 18 151/79 100 01/30/17 20:18 99 Nasal Cannula 2.00 01/30/17 20:00 98.1 95 22 169/79 95 01/30/17 18:45 97.5 84 12 143/64 100 Nasal Cannula 2 01/30/17 18:30 86 12 153/72 100 Nasal Cannula 2 01/30/17 18:15 87 16 140/71 100 Nasal Cannula 2 01/30/17 18:00 88 16 146/72 100 Nasal Cannula 2 01/30/17 17:43 97.7 90 18 139/67 100 Nasal Cannula 2 01/31/17 07:00 Intake Total 2000 ml Output Total 625 ml Balance 1375 ml Constitutional Vital Signs Date Time Temp Pulse Resp B/P Pulse Ox O2 Delivery O2 Flow Rate FiO2 01/31/17 12:00 97.7 99 16 163/89 98 01/31/17 08:00 98.6 92 16 158/76 98 01/31/17 04:09 16 01/31/17 04:00 98.8 97 16 167/82 93 01/31/17 00:12 16 01/31/17 00:00 98.1 92 18 151/79 100 01/30/17 20:18 99 Nasal Cannula 2.00 01/30/17 20:00 98.1 95 22 169/79 95 01/30/17 18:45 97.5 84 12 143/64 100 Nasal Cannula 2 01/30/17 18:30 86 12 153/72 100 Nasal Cannula 2 01/30/17 18:15 87 16 140/71 100 Nasal Cannula 2 01/30/17 18:00 88 16 146/72 100 Nasal Cannula 2 01/30/17 17:43 97.7 90 18 139/67 100 Nasal Cannula 2 01/31/17 07:00 Intake Total 2000 ml Output Total 625 ml Balance 1375 ml (Angélica Giles) Review of Systems/Exam Exam Ms Burton is alert and oriented x 3. Speech is fluent. CN: pupils equal, facial motor symmetric. Neck immobilized by [place] J collar Motor: 4 /5 left deltoid, biceps, triceps, 4/5 left police pilot and hand intrinsic, 5/ 5 right upper extremity and lower extremities b/l Sensory: decreased left C6 distribution Negative Kolb's sign bilaterally Plantars bilateral downgoing. No ankle clonus Cerebellar exam unremarkable (Angélica Giles) Medications Current Medications Current Medications Medications (Trade) Dose Ordered Sig/Akanksha Route PRN Reason Start Time Stop Time Status Last Admin Dose Admin Clonidine (Catapres) 0.1 mg Q6H PRN PO SBP>160, DBP>90 01/25/17 16:00 01/28/17 06:57 Gabapentin (Neurontin) 800 mg TID PO 01/25/17 18:00 01/31/17 13:14 Dextrose (D50w (Vial) Inj) 50 ml UNSCH PRN IV HYPOGLYCEMIA-SEE COMMENTS 01/25/17 16:15 Glucagon (Glucagon Inj) 1 mg UNSCH PRN OTHER HYPOGLYCEMIA-SEE COMMENTS 01/25/17 16:15 Amlodipine Besylate (Norvasc) 5 mg DAILY PO 01/26/17 09:00 01/31/17 09:00 Hydralazine HCl (Apresoline Inj) 10 mg Q6H PRN IV blood pressure over 160/90 01/25/17 16:15 01/30/17 12:20 Ondansetron HCl (Zofran Inj) 4 mg Q6H PRN IV NAUSEA 01/25/17 16:15 01/27/17 20:48 Senna/Docusate Sodium (Abi-Colace) 1 tab BID PRN PO CONSTIPATION 01/25/17 16:15 Calcium Carbonate (Tums Chew) 1,000 mg TID PRN CHEW DYSPEPSIA 01/25/17 16:15 Insulin Human Isoph/Insulin Regular (NovoLIN 70/30 INJ) 5 units BID@08,17 SQ 01/27/17 17:00 01/31/17 08:00 Promethazine HCl (Phenergan Supp) 12.5 mg PCHS RECTAL 01/28/17 13:30 Atorvastatin Calcium 20 mg 20 mg HS PO 01/28/17 21:00 01/29/17 20:46 Potassium Chloride/Sodium Chloride (NS + KCl 20 Meq Inj) 1,000 ml @ 100 mls/hr Q10H IV 01/30/17 17:28 01/31/17 04:02 IV Flush (NS Flush) 2 ml UNSCH PRN IVF FLUSH AFTER USING IV ACCESS 01/30/17 17:30 IV Flush 2 ml 2 ml BID IVF 01/30/17 21:00 Cefazolin Sodium/ Dextrose (Ancef 2 Gm Premix) 50 ml @ 100 mls/hr Q8H IV 01/30/17 22:00 01/31/17 14:29 01/31/17 13:15 Docusate Sodium (Colace) 100 mg BID PO 01/30/17 21:00 Pantoprazole Sodium (Protonix) 40 mg DAILY PO 01/31/17 09:00 01/31/17 09:00 Acetaminophen/ Hydrocodone Bitart ([place] 10-325 Mg) 1 tab Q4H PRN PO PAIN SCALE 1 TO 5 01/30/17 17:30 Acetaminophen/ Hydrocodone Bitart ([place] 10-325 Mg) 2 tab Q4H PRN PO PAIN SCALE 6 TO 10 01/30/17 17:30 01/31/17 13:14 Morphine Sulfate (Morphine Inj) 2 mg Q2H PRN IV PUSH PAIN SCALE 1 TO 6 01/30/17 17:30 01/30/17 23:59 Morphine Sulfate (Morphine Inj) 4 mg Q2H PRN IV PUSH PAIN SCALE 7 TO 10 01/30/17 17:30 01/31/17 04:02 Acetaminophen (Tylenol) 650 mg Q4H PRN PO TEMPERATURE > 101.5 F 01/30/17 17:30 Dexamethasone Sodium Phosphate (Decadron Inj) 4 mg Q6HR IV PUSH 01/30/17 18:00 01/31/17 11:25 Miscellaneous Information ALL NURSING DEPARTME... UNSCH PRN .XX SEE LABEL COMMENTS 01/30/17 19:00 01/31/17 18:59 (Angélica Giles) Medical Decision Making MDM Remarks 51 y/o female complains of cervical and left upper extremity pain, MRI shows cervical spondylosis at C5-6 with moderate canal with left foraminal stenosis, s/p C5-6 anterior cervical discectomy with interbody arthrodesis on 01/30/17, POD 1 (Angélica Giles) Plan Plan Remarks doing well, neuro stable cont supportive care maintain cervical collar clear to restart therapy scds and teds for dvt prophylaxis (Angélica Giles) Attending Statement The exam, history, and the medical decision-making described in the above note were completed with the assistance of the mid-level provider. I reviewed and agree with the findings presented. I attest that I had a [id number] encounter with the patient on the same day, and personally performed and documented my assessment and findings in the medical record. (Ady Herrera MD) Angélica Giles Jan 31, 2017 14:09 Ady Herrera MD Feb 03, 2017 19:24
--- NOTE | 2017-01-31 17:47 | HHI.PR ---
Subjective Remarks Patient feeling a little bit tired. Pain currently controlled on pain medication. Denies any chest pain, shortness of breath, nausea vomiting Objective Vitals Vital Signs Date Time Temp Pulse Resp B/P Pulse Ox O2 Delivery O2 Flow Rate FiO2 01/31/17 16:00 98.2 87 16 130/63 99 01/31/17 15:37 18 01/31/17 14:14 19 01/31/17 12:00 97.7 99 16 163/89 98 01/31/17 11:00 97 01/31/17 08:00 98.6 92 16 158/76 98 01/31/17 04:00 98.8 97 16 167/82 93 01/31/17 00:12 16 01/31/17 00:00 98.1 92 18 151/79 100 01/30/17 20:18 99 Nasal Cannula 2.00 01/30/17 20:00 98.1 95 22 169/79 95 01/30/17 18:45 97.5 84 12 143/64 100 Nasal Cannula 2 01/30/17 18:30 86 12 153/72 100 Nasal Cannula 2 01/30/17 18:15 87 16 140/71 100 Nasal Cannula 2 01/30/17 18:00 88 16 146/72 100 Nasal Cannula 2 01/30/17 17:43 97.7 90 18 139/67 100 Nasal Cannula 2 I/O 01/30/17 01/30/17 01/30/17 01/31/17 01/31/17 01/31/17 07:00 15:00 23:00 07:00 15:00 23:00 Intake Total 700 ml 1300 ml 480 ml Output Total 175 ml 450 ml 450 ml Balance 700 ml 1125 ml -450 ml 30 ml Intake Oral 480 ml IV Total 700 ml Other 1300 ml Output Urine Total 125 ml 450 ml 450 ml Estimated Blood Loss 50 ml # Voids 2 2 # Bowel Movements 0 0 0 Result Diagram: 01/26/17 0736 Imaging Last Impressions Cervical Spine X-Ray 01/30/17 0000 Signed Impressions: Service Date/Time: Monday, January 30, 2017 15:25 - CONCLUSION: 1. Fusion hardware in excellent position. Herminio Pretty MD Brain MRI 01/25/17 1201 Signed Impressions: Service Date/Time: Wednesday, January 25, 2017 12:32 - CONCLUSION: No acute intracranial findings. Americo Kraft MD Head CT 01/25/17 1154 Signed Impressions: Service Date/Time: Wednesday, January 25, 2017 12:20 - CONCLUSION: No acute disease. Silvestre Pretty MD FACR Cervical Spine MRI 01/25/17 0000 Signed Impressions: Service Date/Time: Wednesday, January 25, 2017 16:52 - CONCLUSION: C5-6 broad-based disc osteophyte complex with superimposed left lateral disc protrusion resulting in moderate central canal stenosis and mild spinal cord deformity but no spinal cord signal abnormality. Moderate left neuroforaminal narrowing. Americo Kraft MD Objective Remarks awake and alert, NAD Cervical collar in place. Dressing under collar noted dry clean and intact. lungs clear regular rhythm abdomen soft, nontender extremities no edema, some weakness noted on the left lower extremity A/P Problem List: (1) LUE weakness ICD Code: R29.898 Status: Acute (2) Weakness of left lower extremity ICD Code: R29.898 Status: Acute (3) Hyperglycemia ICD Code: R73.9 Status: Acute Assessment and Plan This is a 51-year-old right handed female who presents to the emergency department because of intermittent left upper and lower extremity paresthesias and weakness for 5 days worse today becoming more persistent Cervical Myelopathy- symptoms Left-sided tingling numbness more of LUE Heads CT and brain MRI without acute findings. She had complete neurologic workup 6 months ago. -neurology ff. Neurosurgery - seen by Dr. Herrera- POD1 s/p C5-C6 ACDF. Continue pain control. Hypertensive urgency. Improved BP readings. on Norvasc and added as needed medications clonidine and hydralazine to keep blood pressure less than 160/90. monitor post op will benefit from DEVORAH/ARB- -resume home medication. Monitor kidney function. E coli UTI -Levaquin till 01/31 Neuropathy/Dizziness - Improved - likely with some autonomic involvement- from Uncontrolled DM. Zofran prn for nausea- not working- change to Phenergan orthostatics- negative DM type, elevated readings. . a1C 11.7. reinforced diabetes education off metformin secondary to acute kidney injury. on patient on Insulin regimen- 70/30, increase to 8 units bid SQ. continue to adjust as patient is on dexamethasone post surgery Acute kidney injury with hyponatremia. Resolved. Continue IV hydration and avoid nephrotoxins DVT prophylaxis with SCD and early ambulation/ Discharge Planning PC pending clearance from neurosurgery Seda Gibson MD Jan 31, 2017 17:46
[2017-01-31] MEDS: ATORVASTATIN 20 MG TAB PO SCH (20:56)
[2017-02-01 00:30] VITALS: BP 132/75; PULSE 88; RESP 18; TEMP 98.8; O2SAT 98
[2017-02-01] MEDS: NS + KCL 20 MEQ INJ 1,000 ML IV SCH (05:10)
[2017-02-01] MEDS: DEXAMETHASONE SOD PHOS 4 MG/ML VIAL IV PUSH SCH ×2 (05:11→11:50)
[2017-02-01] MEDS: ACETAMINOPHEN/HYDROcodone 325 MG/10 MG TAB PO PRN ×3 (05:11→15:26)
[2017-02-01] MEDS: INSULIN ASPART SUPPLEMENTAL SCALE SQ SCH ×3 (05:32→15:52)
[2017-02-01 05:45] VITALS: BP 146/80; PULSE 84; RESP 18; TEMP 97.2; O2SAT 98
[2017-02-01 08:00] VITALS: BP 158/74; PULSE 84; PULSE 94; RESP 18; TEMP 96.7; O2SAT 95
[2017-02-01] MEDS: INSULIN HUMAN NPH/R 70/30 1,000 UNITS/10 ML VIAL SQ SCH ×2 (08:12→17:44)
[2017-02-01] MEDS: amLODIPine BESYLATE 5 MG TAB PO SCH (08:13)
[2017-02-01] MEDS: PANTOPRAZOLE SOD 40 MG DELAYED RELEASE TAB PO SCH (08:13)
[2017-02-01] MEDS: DOCUSATE SODIUM 100 MG CAP PO SCH (08:13)
[2017-02-01] MEDS: GABAPENTIN 400 MG CAP PO SCH ×3 (08:16→18:24)
[2017-02-01 08:44] LABS: BICARBONATE 23.1 MEQ/L (21.0-32.0); POTASSIUM 5.1 MEQ/L (3.5-5.1)
[2017-02-01] MEDS: SODIUM CHLORIDE 0.9% FLUSH 5 ML FLUSH IVF SCH (09:00)
[2017-02-01] MEDS ORDERED: HYDROCHLOROTHIAZIDE 12.5 MG CAP PO SCH (09:00)
[2017-02-01] MEDS ORDERED: NON-FORMULARY DRUG (Losartan-Hydrochlorothiazide 1 TAB) PO SCH (09:00)
[2017-02-01] MEDS ORDERED: LOSARTAN 50 MG TAB PO SCH (09:00)
[2017-02-01] MEDS: PROMETHAZINE HCL 12.5 MG SUPP RECTAL SCH ×2 (09:30→13:30)
[2017-02-01 10:31] VITALS: O2SAT 95
[2017-02-01 12:00] VITALS: BP 157/74; PULSE 95; RESP 18; TEMP 97.3; O2SAT 98
--- NOTE | 2017-02-01 12:27 | HHI.NSPN ---
(Angélica Giles) Note Status Status: Progress Note (Angélica Giles) Interval History Interval History Ms. Burton is a 51-year-old -Greek female with history of diabetes, hyperlipidemia, hypertension, obesity, and TIA. She presented to the [facility] Emergency Room due to left upper and lower extremity numbness with mild weakness for five days, and slowly progressively worsening. She denies speech difficulty, headache, dizziness, double vision or facial numbness. The patient states that she had a similar episode back in July and she was diagnosed as TIA, however she did not recover completely and she states that these events "come and go". Occasionally she feels weak and drags her left leg. She denies severe pain. She reports that she has noticed some tingling and radiating pain in the left lower extremity with mild stiffness of the neck, but denies deep pain in the neck. She also denies injury or falls. Upon presentation to the emergency room, her blood pressure was very elevated, 237/112. 01/28: mild cervical pain, continues to complain of left upper extremity pain posteriorly to her hand. 01/29: reports no changes to neuro sx, to OR tomorrow 01/31: POD 1 s/p C5-6 ACDF, currently nauseaus but refusing zofran. c/o throat soreness. slight decrease in left arm pain 02/01: POD 2, nausea better, cont c/o throat discomfort (Angélica Giles) Labs, Micro, & Vital Signs Results Date Time Temp Pulse Resp B/P Pulse Ox O2 Delivery O2 Flow Rate FiO2 02/01/17 10:31 95 Nasal Cannula 2.00 02/01/17 08:00 96.7 94 18 158/74 95 02/01/17 05:45 97.2 84 18 146/80 98 02/01/17 00:30 98.8 88 18 132/75 98 01/31/17 21:30 98.1 90 19 135/73 99 01/31/17 20:00 80 01/31/17 16:00 98.2 87 16 130/63 99 01/31/17 15:37 18 01/31/17 14:14 19 02/01/17 07:00 Intake Total 2574 ml Output Total 1550 ml Balance 1024 ml Constitutional Vital Signs Date Time Temp Pulse Resp B/P Pulse Ox O2 Delivery O2 Flow Rate FiO2 02/01/17 10:31 95 Nasal Cannula 2.00 02/01/17 08:00 96.7 94 18 158/74 95 02/01/17 05:45 97.2 84 18 146/80 98 02/01/17 00:30 98.8 88 18 132/75 98 01/31/17 21:30 98.1 90 19 135/73 99 01/31/17 20:00 80 01/31/17 16:00 98.2 87 16 130/63 99 01/31/17 15:37 18 01/31/17 14:14 19 02/01/17 07:00 Intake Total 2574 ml Output Total 1550 ml Balance 1024 ml (Angélica Giles) Review of Systems/Exam Exam Ms Burton is alert and oriented x 3. Speech is appropriate. Wound is clean and dry. CN: pupils 3 mm equal, facial motor symmetric. Neck immobilized by Carbon J collar Motor: 4/5 left deltoid, biceps, triceps, 4/5 left chair installer and hand intrinsic, 5/5 right upper extremity and lower extremities b/l Sensory: decreased left C6 distribution Negative Kolb's sign bilaterally Plantars bilateral downgoing. No ankle clonus Cerebellar exam unremarkable (Angélica Giles) Medications Current Medications Current Medications Medications (Trade) Dose Ordered Sig/Akanksha Route PRN Reason Start Time Stop Time Status Last Admin Dose Admin Clonidine (Catapres) 0.1 mg Q6H PRN PO SBP>160, DBP>90 01/25/17 16:00 01/28/17 06:57 Gabapentin (Neurontin) 800 mg TID PO 01/25/17 18:00 02/01/17 11:51 Dextrose (D50w (Vial) Inj) 50 ml UNSCH PRN IV HYPOGLYCEMIA-SEE COMMENTS 01/25/17 16:15 Glucagon (Glucagon Inj) 1 mg UNSCH PRN OTHER HYPOGLYCEMIA-SEE COMMENTS 01/25/17 16:15 Amlodipine Besylate (Norvasc) 5 mg DAILY PO 01/26/17 09:00 02/01/17 08:13 Hydralazine HCl (Apresoline Inj) 10 mg Q6H PRN IV blood pressure over 160/90 01/25/17 16:15 01/30/17 12:20 Ondansetron HCl (Zofran Inj) 4 mg Q6H PRN IV NAUSEA 01/25/17 16:15 01/27/17 20:48 Senna/Docusate Sodium (Abi-Colace) 1 tab BID PRN PO CONSTIPATION 01/25/17 16:15 02/01/17 08:26 Calcium Carbonate (Tums Chew) 1,000 mg TID PRN CHEW DYSPEPSIA 01/25/17 16:15 Promethazine HCl (Phenergan Supp) 12.5 mg PCHS RECTAL 01/28/17 13:30 Atorvastatin Calcium 20 mg 20 mg HS PO 01/28/17 21:00 01/31/17 20:56 Potassium Chloride/Sodium Chloride (NS + KCl 20 Meq Inj) 1,000 ml @ 100 mls/hr Q10H IV 01/30/17 17:28 02/01/17 05:10 IV Flush (NS Flush) 2 ml UNSCH PRN IVF FLUSH AFTER USING IV ACCESS 01/30/17 17:30 IV Flush (NS Flush) 2 ml BID IVF 01/30/17 21:00 Docusate Sodium (Colace) 100 mg BID PO 01/30/17 21:00 02/01/17 08:13 Pantoprazole Sodium (Protonix) 40 mg DAILY PO 01/31/17 09:00 02/01/17 08:13 Acetaminophen/ Hydrocodone Bitart ([place] 10-325 Mg) 1 tab Q4H PRN PO PAIN SCALE 1 TO 5 01/30/17 17:30 Acetaminophen/ Hydrocodone Bitart ([place] 10-325 Mg) 2 tab Q4H PRN PO PAIN SCALE 6 TO 10 01/30/17 17:30 02/01/17 11:50 Morphine Sulfate (Morphine Inj) 2 mg Q2H PRN IV PUSH PAIN SCALE 1 TO 6 01/30/17 17:30 01/30/17 23:59 Morphine Sulfate (Morphine Inj) 4 mg Q2H PRN IV PUSH PAIN SCALE 7 TO 10 01/30/17 17:30 01/31/17 15:32 Acetaminophen (Tylenol) 650 mg Q4H PRN PO TEMPERATURE > 101.5 F 01/30/17 17:30 Dexamethasone Sodium Phosphate (Decadron Inj) 4 mg Q6HR IV PUSH 01/30/17 18:00 02/01/17 11:50 Insulin Human Isoph/Insulin Regular (NovoLIN 70/30 INJ) 8 units BID@08,17 SQ 02/01/17 08:00 02/01/17 08:12 Losartan Potassium (Cozaar) 50 mg DAILY PO 02/01/17 09:00 02/01/17 08:13 Hydrochlorothiazide (Microzide) 12.5 mg DAILY PO 02/01/17 09:00 02/01/17 08:13 (Angélica Giles) Medical Decision Making MDM Remarks 51 y/o female complains of cervical and left upper extremity pain, MRI shows cervical spondylosis at C5-6 with moderate canal with left foraminal stenosis, s/p C5-6 anterior cervical discectomy with interbody arthrodesis on 01/30/17, POD 2, doing well, neuro stable (Angélica Giles) Plan Plan Remarks doing well, neuro stable maintain cervical collar cont therapy dw pt regarding activity restriction and wound care, clear to dc home from NRS standpoint, f/u in office in 3 weeks (Angélica Giles) Attending Statement The exam, history, and the medical decision-making described in the above note were completed with the assistance of the mid-level provider. I reviewed and agree with the findings presented. I attest that I had a [id number] encounter with the patient on the same day, and personally performed and documented my assessment and findings in the medical record. (Ady Herrera MD) Angélica Giles Feb 01, 2017 12:27 Ady Herrera MD Feb 03, 2017 19:27
[2017-02-01] MEDS ORDERED: PHENOL 1.4% SOLN 180 ML BTL OROPHARYNG PRN (12:30)
--- NOTE | 2017-02-01 15:14 | HHI.FF ---
Face to Face Verification Diagnosis: (1) Weakness of left lower extremity (2) Hypertension (3) Type 2 diabetes mellitus Physical Therapy Order: Evaluate and Treat Occupational Therapy Order: Evaluate and Treat Home Health Nursing Order: Wound care and dressing changes Nursing assessment with vital signs Instructions: surgical area may be kept open to air, shower only I have seen patient Devika Burton on 02/01/17. My clinical findings support the need for the requested home health care services because: Pt was evaluated by both PT/OT post sx and requires home health PT/OT Limited ability to care for self High risk of falls I certify that my clinical findings support that this patient is homebound because: Pt was evaluated by both PT/OT post sx and requires home health PT/OT Unsteady gait/balance Seda Gibson MD Feb 01, 2017 15:14
[2017-02-01] MEDS ORDERED: AMLO5 PO (15:23)
[2017-02-01] MEDS ORDERED: NOVOLOGSS SQ (15:23)
[2017-02-01] MEDS ORDERED: HYDR-3583 PO (15:23)
[2017-02-01] MEDS ORDERED: ATOR20TA15 PO (15:23)
[2017-02-01] MEDS ORDERED: SENN1TAB PO (15:24)
[2017-02-01] MEDS ORDERED: INSU1MIS15 (15:30)
[2017-02-01] MEDS ORDERED: LANCETS1 MI1 (15:30)
[2017-02-01] MEDS ORDERED: GLUCTES12 (15:30)
[2017-02-01] MEDS ORDERED: GLUCKIT15 (15:30)
[2017-02-01 16:26] VITALS: RESP 18
[2017-02-01] MEDS ORDERED: NOVO7030P2 SQ (17:24)
--- NOTE | 2017-02-01 17:34 | HHI.DS ---
Discharge Summary Admission Date Jan 25, 2017 at 13:42 Discharge Date: Feb 01, 2017 Admitting Diagnosis LUE/LLE Weakness (1) LUE weakness ICD Code: R29.898 Diagnosis: Principal (2) Weakness of left lower extremity ICD Code: R29.898 Diagnosis: Principal (3) Hyperglycemia ICD Code: R73.9 Diagnosis: Principal Procedures s/p C5-C6 diskectomy/arthrodesis Brief History - From Admission This is a 51-year-old female with a history of TIA, hyperlipidemia, diabetes mellitus, hypertension and obesity. 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 She also has been dropping things with her left hand. Today she also complained of chills, dizziness and nausea. No fever, headache, speech or swallowing difficulties, chest pain, shortness of breath, abdominal and back pain and diarrhea. She has chronic increased urination and incontinence. She reports a history of stroke 6 months ago and feels her symptoms are similar. EMR review shows she had TIA and had brain MRI, head MRA, carotid ultrasound and echocardiogram. She has been compliant with aspirin. No recent medication changes. BP was also elevated 237/112 and received clonidine. All other systems reviewed negative CBC/BMP: 02/01/17 0738 Significant Findings Laboratory Tests Test 02/01/17 07:38 Blood Urea Nitrogen 22 MG/DL (7-18) Creatinine 1.09 MG/DL (0.50-1.00) Estimat Glomerular Filtration 64 ML/MIN (>89) Rate Random Glucose 295 MG/DL (74-106) Calcium Level 7.9 MG/DL (8.5-10.1) Imaging Last Impressions Cervical Spine X-Ray 01/30/17 0000 Signed Impressions: Service Date/Time: Monday, January 30, 2017 15:25 - CONCLUSION: 1. Fusion hardware in excellent position. Herminio Pretty MD Brain MRI 01/25/17 1201 Signed Impressions: Service Date/Time: Wednesday, January 25, 2017 12:32 - CONCLUSION: No acute intracranial findings. Americo Kraft MD Head CT 01/25/17 1154 Signed Impressions: Service Date/Time: Wednesday, January 25, 2017 12:20 - CONCLUSION: No acute disease. Silvestre Pretty MD FACR Cervical Spine MRI 01/25/17 0000 Signed Impressions: Service Date/Time: Wednesday, January 25, 2017 16:52 - CONCLUSION: C5-6 broad-based disc osteophyte complex with superimposed left lateral disc protrusion resulting in moderate central canal stenosis and mild spinal cord deformity but no spinal cord signal abnormality. Moderate left neuroforaminal narrowing. Americo Kraft MD PE at Discharge awake and alert, NAD Cervical collar in place. Dressing under collar noted dry clean and intact. lungs clear regular rhythm abdomen soft, nontender extremities no edema, some weakness noted on the left lower extremity Pt update on day of discharge pt has some pain but controlled. denies any CP/SOB/N/V Hospital Course This is a 51-year-old right handed female who presents to the emergency department because of intermittent left upper and lower extremity paresthesias and weakness for 5 days worse today becoming more persistent. Heads CT and brain MRI without acute findings.Neurosurgery , Dr. Herrera evaluated the pt and she is now POD s/p C5-C6 diskectomy/arthrodesis. Continue pain control. Per neurosurgery, patient can shower but no soaking. She may keep area open to air. Hypertensive urgency. Improved BP readings. on Norvasc. post op will benefit from DEVORAH/ARB, encourage po hydration and f/u kidney function as outpatient w PCP where she can start an DEVORAH/ARB E coli UTI -Levaquin treatment completed DM type, elevated readings. . a1C 11.7. reinforced diabetes education off metformin secondary to acute kidney injury. on patient on Insulin regimen- insulin 70/30, 5 units bid SQ. and insulin sliding scale. Pt was taught how to give herself the insulin. Patient was instructed to keep a log of her blood sugars and bring at next appointment with her PCP in 3-5 days. Acute kidney injury with hyponatremia. Resolved. Continue IV hydration and avoid nephrotoxins Pt Condition on Discharge: Stable Discharge Disposition: Disch w/ Home Health Serv Discharge Time: > 30 minutes Discharge Instructions DIET: Follow Instructions for: Heart Healthy Diet, Diabetic Diet Activities you can perform: See Additionl Instruction Other Activity Instructions: maintain cervical collar cont therapy activity restriction and wound care per neurosx recs. Pt aware Follow up Referrals: Neurosurgery @ [facility] PCP Follow-up - 3-5 Days New Medications: Blood Glucose Monitoring W/Device (Glucocom Blood Glucose Mo W/Device) 1 Kit Kit 1 KIT .ROUTE DIRECTED Blood Sugar Management #1 KIT Glucocom Test Strips (Glucocom Test Strips) 1 Lula Lula 1 EA .ROUTE DIRECTED Blood Sugar Management #1 BOX Insulin Syringe/U-100/31G X 5/16" 1 ml (Insulin Syringe/U-100/31G X 5/16" 1 ml) 1 Mis Mis 1 EA .ROUTE DIRECTED Blood Sugar Management #1 Ref 0 BOX Lancets (Lancets) 1 Mis Mis 1 EA .ROUTE DIRECTED Blood Sugar Management #1 Ref 0 BOX Amlodipine (Norvasc) 5 Mg Tab 5 MG PO DAILY Days 30 TAB Atorvastatin (Atorvastatin) 20 Mg Tab 20 MG PO HS Days 30 TAB Hydrocodone-Acetaminophen (Hydrocodone-Acetaminophen) 10-325 mg Tab 1 TAB PO Q4-6H PRN PAIN SCALE 1 TO 5 #30 Ref 0 TAB Insulin Aspart Inj (Novolog Inj) 100 Unit/Ml Inj 1 UNIT SQ DIRECTED if blood sugar <70 do not give insuline if blood sugar 150 -199 give 1 unit if blood sugar 200-249 give 3 units if blood sugar 250-299 give 5 units if blood sugar 300-349 give 7 units if blood sugar >349 give 9 units diabetes #30 INJECTION Insulin Human Isophane-Regular 70-30 Inj (Novolin 70-30 Inj) 1,000 Unit/10 Ml Vial 5 UNITS SQ BID@08,17 Days 30 INJECTION Sennosides-Docusate Sodium (Senna Plus 8.6-50 mg) 1 Tab Tab 1 TAB PO BID PRN CONSTIPATION Days 30 TAB Continued Medications: Aspirin (Aspirin) 325 Mg Tab 325 MG PO DAILY Prevent Blood Clot #30 TAB Gabapentin (Gabapentin) 800 Mg Tab 800 MG PO TID #90 Ref 0 TAB Glimepiride (Glimepiride) 4 Mg Tab 4 MG PO DAILY Take with breakfast or first main meal Blood Sugar Management #30 Ref 0 TAB Losartan-Hydrochlorothiazide (Losartan-Hydrochlorothiazide) 50-12.5 Mg Tab 1 TAB PO DAILY Blood Pressure Management #30 Ref 0 TAB Metformin (Metformin) 1,000 Mg Tab 1000 MG PO BIDPC With meals Blood Sugar Management #60 Ref 0 TAB Omeprazole (Omeprazole) 20 Mg Tab 20 MG PO DAILY #30 Ref 0 TAB Discontinued Medications: Atorvastatin (Atorvastatin) 10 Mg Tab 10 MG PO HS Cholesterol Management #30 Ref 0 TAB Seda Gibson MD Feb 01, 2017 17:34
[2017-02-20] MEDS ORDERED: HYDR-3583 PO (15:32)
== END 2017-02-01 18:29 | disposition home or self-care (01) | DRG 472 ==
LOC: NEPE 11:31 → NEDA 13:42 → OBSVTOIN 13:42 → N05A 17:23
PROVIDERS: ADMIT Hospitalist; ATTEND Hospitalist
PROC: 0RG10A0 Fusion of Cervical Vertebral Joint with Interbody Fusion Device, Anterior Approach, Anterior Column, Open Approach (ICD-10-PCS; 2017-01-30)
PROC: 0RT30ZZ Resection of Cervical Vertebral Disc, Open Approach (ICD-10-PCS; principal; 2017-01-30 14:52)
DX: M48.02 Spinal stenosis, cervical region (principal); N17.9 Acute kidney failure, unspecified; E11.65 Type 2 diabetes mellitus with hyperglycemia; E87.1 Hypo-osmolality and hyponatremia; N39.0 Urinary tract infection, site not specified; M50.023 Cervical disc disorder at C6-C7 level with myelopathy; I10 Essential (primary) hypertension; Z86.73 Personal history of transient ischemic attack (TIA), and cerebral infarction without residual deficits; Z79.82 Long term (current) use of aspirin; Z79.84 Long term (current) use of oral hypoglycemic drugs; E78.5 Hyperlipidemia, unspecified; I16.0 Hypertensive urgency; B96.20 Unspecified Escherichia coli [E. coli] as the cause of diseases classified elsewhere; M50.122 Cervical disc disorder at C5-C6 level with radiculopathy
CPT/HCPCS: 70450; 70551; 72040; 72141; 76000; 80048; 80053; 80061; 80307; 81001; 82948; 83036; 84443; 84484; 85025; 87077; 87086; 87186; 93005; 93306; 94150; 96374; C1713; J0131; J0360; J0690; J0696; J1100; J1580; J1815; J2250; J2270; J2370; J2405; J2550; J2710; J3010; J3370; J3480; J7030; J7050; J7120; L0150; L0172